=== PATIENT | male | born 1995 | race Caucasian/White ===

== ENCOUNTER 2020-08-15 14:21 | Outpatient (REF) | payer OTHER, SELFPAY | END 2020-08-15 14:22 | disposition home or self-care (01) | LOC: HO.LAB 14:21 | PROVIDERS: Visit Provider Internal Medicine | DX: Z20.828 Contact with and (suspected) exposure to other viral communicable diseases (principal) | CPT/HCPCS: U0003 ==

== ENCOUNTER 2020-08-19 11:30 | Outpatient (REF) | payer OTHER, SELFPAY | END 2020-08-19 11:31 | disposition home or self-care (01) | LOC: HO.LAB 11:30 | PROVIDERS: Visit Provider Internal Medicine | DX: Z20.828 Contact with and (suspected) exposure to other viral communicable diseases (principal) | CPT/HCPCS: C9803; U0003 ==

== ENCOUNTER 2020-08-25 15:01 | Outpatient (REF) | payer OTHER, SELFPAY | END 2020-08-25 15:02 | disposition home or self-care (01) | LOC: HO.LAB 15:01 | PROVIDERS: Visit Provider Internal Medicine | DX: Z20.828 Contact with and (suspected) exposure to other viral communicable diseases (principal) | CPT/HCPCS: C9803; U0003 ==

== ENCOUNTER 2020-08-31 17:08 | Outpatient (REF) | payer OTHER, SELFPAY | END 2020-08-31 17:09 | disposition home or self-care (01) | LOC: HO.LAB 17:08 | PROVIDERS: PCP Pediatrics; Visit Provider Internal Medicine | DX: Z20.828 Contact with and (suspected) exposure to other viral communicable diseases (principal) | CPT/HCPCS: C9803; U0003 ==

== ENCOUNTER 2020-09-16 11:18 | Outpatient (REF) | payer OTHER, SELFPAY | END 2020-09-16 11:19 | disposition home or self-care (01) | LOC: HO.LAB 11:18 | PROVIDERS: PCP Pediatrics; Visit Provider Internal Medicine | DX: Z20.828 Contact with and (suspected) exposure to other viral communicable diseases (principal) | CPT/HCPCS: C9803; U0003 ==

== ENCOUNTER 2020-11-28 17:26 | Inpatient (IN) | payer OTHER, SELFPAY ==
--- NOTE | ~2020-11-28 | XR_ITS ---
EXAMINATION: PORTABLE CHEST 1 VIEW CLINICAL INFORMATION: weakness . COMPARISON: No recent pertinent prior studies are available for comparison. TECHNIQUE: Portable frontal view of the chest was obtained. FINDINGS: The lungs are well expanded. No focal infiltrate, effusion, edema, or pneumothorax. Cardiac and mediastinal silhouettes are within normal limits for technique. No acute bony abnormality seen. XR/XR chest 1V IMPRESSION: No evidence of acute disease.
--- NOTE | 2020-11-28 17:35 | ED.WEAKNESS ---
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 Patient denies any cough occasional mild shortness of breath no fever no chills no abdominal pain no vomiting no diarrhea. Also patient has been feeling very weak and tired Complaint: generalized weakness Onset (ago): day(s) (3) Duration: constant Location: generalized Related Data Allergies Allergy/AdvReac Type Severity Reaction Status Date / Time No Known Allergies Allergy Verified 11/28/20 18:06 Review of Systems Review of Systems: Constitutional : No Weight loss, No Fever, No Chills ENT/Mouth : No sore throat, No Rhinorrhea Eyes: No Eye Pain, No Swelling Cardiovascular : No Chest Pain, no palpitations Respiratory : No Cough, No Sputum, no shortness of breath Gastrointestinal : no Nausea, No Vomiting, No Diarrhea, No abdominal Pain, no black stools Genitourinary : No Dysuria, No Urinary Frequency Musculoskeletal : No joint pain, No Myalgias, No Joint Swelling Skin : No Skin Lesions, No rash Neuro : ++ Weakness, No Numbness, ++Dizziness, No Headache Psych : No Anxiety/Panic, No Depression Heme/Lymph: No Bruising, No Lymphadenopathy Endocrine : No Polyuria, No Polydipsia All other systems reviewed and are negative FOR[facility], [facility] Past Medical History Medical History (Updated 11/29/20 @ 01:44 by Bernabe Wilson MD) Diabetes mellitus type 1 History of heroin abuse Social History Social History Alcohol intake: never Smoking Status: Current every day smoker Use of substances other than those prescribed or required for medical reasons: No Advance Directives: No Advance Directives Information Provided: Yes Physical Exam Vital Signs: Vital Signs: Last Vital Signs Temp 97.4 F 11/28/20 17:36 Pulse 73 11/29/20 00:26 Resp 16 11/29/20 00:26 BP 110/67 02/16/21 00:26 Pulse Ox 100 11/29/20 00:26 Body Mass Index 20.6 Appearance: Alert. Oriented X3. No acute distress. Eyes: Pupils equal, round and reactive to light. Sensitive to light ENT: Pharynx normal. Oral mucosa dry Neck: Normal inspection. Neck supple. CVS: Normal heart rate and rhythm. Pulses normal. Respiratory: No respiratory distress. Breath sounds normal. Abdomen: Soft and nontender. Bowel sounds are present, no mass palpable, no CVA tenderness Skin: Skin warm and dry. Normal skin color. Normal skin turgor. Extremities: No lower extremity edema. Neuro: Oriented X 3. No motor deficit. No sensory deficit. Course Course Course Narrative: Patient feeling much better now after 1 L of IV fluids has insulin pump which is set at 2 units/hour at basal rate with 0.1 units bolus . Patient will receive another 2 L of normal saline along with IV 5 units of insulin as a bolus. Patient headache has improved after Imitrex Reevaluation(s) Reevaluation #1: Patient still metabolic acidotic after 3 L of IV fluid pH is still 7.24 with bicarb of 15 pH of 7.24 although anion gap is closed will start him on insulin drip watch him for some time repeat the chemistry in 4 hours. Patient had p.o. food in the ER and already received 3 L of normal saline will start patient on D5 half-normal. Blood sugar is 231 now Time: 00:54 Reevaluation #2: Case discussed with Dr. Moncada will admit patient for DKA on insulin drip , although there is no ICU bed will watch patient in the ER repeat labs in the morning Time: 01:42 MDM - Weakness MDM Narrative Medical decision making narrative: Patient with diabetic ketoacidosis with nausea and weakness and migraine headache with anion gap of 21 in the labs and acidotic in venous gases bicarb of 11 will continue to give IV fluids will give 8 units of insulin IV and monitor Differential Diagnosis Differential diagnosis: Likely dehydration Lab Data Attestation: I reviewed the patient's lab results. Result diagrams: 11/28/20 17:49 11/28/20 22:05 Labs: Lab Results 11/28/20 11/28/20 11/28/20 Range/Units 17:49 17:49 17:49 WBC 6.7 (4.8-10.8) X10*3/uL RBC 4.09 L (4.60-5.80) X10*6/uL Hgb 12.8 L (14.0-18.0) g/dl Hct 38.0 L (42-52) % MCV 92.9 (80-98) fL MCH 31.3 (27.0-33.0) pg MCHC 33.7 (31.0-36.0) g/dl RDW 12.0 (11.0-16.0) % Plt Count 303 (160-400) X10*3/uL MPV 9.2 L (9.4-12.4) fL Immature Gran % (Auto) 0.3 (0.0-0.4) % Neut % (Auto) 83.7 H (45-73) % Lymph % (Auto) 14.1 L (20-40) % [place] % (Auto) 1.9 L (2-11) % Eos % (Auto) 0.0 (0-4) % Baso % (Auto) 0.0 (0-2) % Lymph # (Auto) 1.0 L (1.2-4.9) X10*3/uL [place] # (Auto) 0.1 (0.1-1.2) X10*3/uL Eos # (Auto) 0.0 (0.0-0.4) X10*3/uL Baso # (Auto) 0.0 (0.0-0.2) X10*3/uL Abs Immat Gran (auto) 0.02 (0.00-0.03) X10*3/uL Absolute Neuts (auto) 5.6 (2.0-8.3) X10*3/uL Absolute Nucleated RBC 0.000 (0.0-0.012) X10*3/uL Nucleated RBC % (auto) 0.0 (0.0-0.2) /100WBC ABG pH (7.35-7.45) ABG pCO2 (32-45) mmHg ABG pO2 (83-108) mmHg ABG HCO3 (22-26) mmol/L ABG O2 Saturation % ABG Base Excess VBG pH (7.32-7.43) VBG pCO2 mmHg VBG pO2 mmHg VBG HCO3 mmol/L VBG O2 Saturation % VBG Base Excess mmol/L Oxygen Given Sodium 132 L (135-145) mmol/L Potassium 4.4 (3.3-5.1) mmol/L Chloride 102 (96-108) mmol/L Carbon Dioxide 13 L (22-29) mmol/L Anion Gap 21 H (12-20) BUN 16 (9-16) mg/dL Creatinine 0.83 (0.5-1.4) mg/dL Estim Creat Clear Calc 125.4 Estimated GFR > 60 POC Glucose (60-115) mg/dL Random Glucose 339 H (60-115) mg/dL Calcium 8.0 L (8.4-10.2) mg/dL Total Bilirubin 0.7 (0.0-1.0) mg/dL Direct Bilirubin 0.2 (0.0-0.5) mg/dL AST 12 (5-37) U/L ALT 21 (0-40) U/L Alkaline Phosphatase 140 H (39-117) U/L Total Protein 6.0 L (6.5-8.0) g/dL Albumin 4.0 (3.5-5.0) g/dL Lipase < 4 L (8-78) U/L Urine Color Urine Appearance Urine pH (5.0-8.0) Ur Specific [place] (1.005-1.025) Urine Protein (NEG-TRACE) MG/DL Urine Glucose (UA) (NEG) MG/DL Urine Ketones (NEG) MG/DL Urine Blood (NEG) Urine Nitrite (NEG) Ur Leukocyte Esterase (NEG) Acetone, Qual Small H (Negative) COVID-19 (ELISA) Negative (Negative) COVID-19 Clin Com See Note 11/28/20 11/28/20 11/28/20 Range/Units 17:50 18:47 20:01 WBC (4.8-10.8) X10*3/uL RBC (4.60-5.80) X10*6/uL Hgb (14.0-18.0) g/dl Hct (42-52) % MCV (80-98) fL MCH (27.0-33.0) pg MCHC (31.0-36.0) g/dl RDW (11.0-16.0) % Plt Count (160-400) X10*3/uL MPV (9.4-12.4) fL Immature Gran % (Auto) (0.0-0.4) % Neut % (Auto) (45-73) % Lymph % (Auto) (20-40) % [place] % (Auto) (2-11) % Eos % (Auto) (0-4) % Baso % (Auto) (0-2) % Lymph # (Auto) (1.2-4.9) X10*3/uL [place] # (Auto) (0.1-1.2) X10*3/uL Eos # (Auto) (0.0-0.4) X10*3/uL Baso # (Auto) (0.0-0.2) X10*3/uL Abs Immat Gran (auto) (0.00-0.03) X10*3/uL Absolute Neuts (auto) (2.0-8.3) X10*3/uL Absolute Nucleated RBC (0.0-0.012) X10*3/uL Nucleated RBC % (auto) (0.0-0.2) /100WBC ABG pH (7.35-7.45) ABG pCO2 (32-45) mmHg ABG pO2 (83-108) mmHg ABG HCO3 (22-26) mmol/L ABG O2 Saturation % ABG Base Excess VBG pH 7.24 L (7.32-7.43) VBG pCO2 24 mmHg VBG pO2 150 mmHg VBG HCO3 11 mmol/L VBG O2 Saturation 99.0 % VBG Base Excess -14.4 mmol/L Oxygen Given Sodium (135-145) mmol/L Potassium (3.3-5.1) mmol/L Chloride (96-108) mmol/L Carbon Dioxide (22-29) mmol/L Anion Gap (12-20) BUN (9-16) mg/dL Creatinine (0.5-1.4) mg/dL Estim Creat Clear Calc Estimated GFR POC Glucose 288 H 240 H (60-115) mg/dL Random Glucose (60-115) mg/dL Calcium (8.4-10.2) mg/dL Total Bilirubin (0.0-1.0) mg/dL Direct Bilirubin (0.0-0.5) mg/dL AST (5-37) U/L ALT (0-40) U/L Alkaline Phosphatase (39-117) U/L Total Protein (6.5-8.0) g/dL Albumin (3.5-5.0) g/dL Lipase (8-78) U/L Urine Color Urine Appearance Urine pH (5.0-8.0) Ur Specific [place] (1.005-1.025) Urine Protein (NEG-TRACE) MG/DL Urine Glucose (UA) (NEG) MG/DL Urine Ketones (NEG) MG/DL Urine Blood (NEG) Urine Nitrite (NEG) Ur Leukocyte Esterase (NEG) Acetone, Qual (Negative) COVID-19 (ELISA) (Negative) COVID-19 Clin Com 11/28/20 11/28/20 11/28/20 Range/Units 22:05 22:12 23:09 WBC (4.8-10.8) X10*3/uL RBC (4.60-5.80) X10*6/uL Hgb (14.0-18.0) g/dl Hct (42-52) % MCV (80-98) fL MCH (27.0-33.0) pg MCHC (31.0-36.0) g/dl RDW (11.0-16.0) % Plt Count (160-400) X10*3/uL MPV (9.4-12.4) fL Immature Gran % (Auto) (0.0-0.4) % Neut % (Auto) (45-73) % Lymph % (Auto) (20-40) % [place] % (Auto) (2-11) % Eos % (Auto) (0-4) % Baso % (Auto) (0-2) % Lymph # (Auto) (1.2-4.9) X10*3/uL [place] # (Auto) (0.1-1.2) X10*3/uL Eos # (Auto) (0.0-0.4) X10*3/uL Baso # (Auto) (0.0-0.2) X10*3/uL Abs Immat Gran (auto) (0.00-0.03) X10*3/uL Absolute Neuts (auto) (2.0-8.3) X10*3/uL Absolute Nucleated RBC (0.0-0.012) X10*3/uL Nucleated RBC % (auto) (0.0-0.2) /100WBC ABG pH (7.35-7.45) ABG pCO2 (32-45) mmHg ABG pO2 (83-108) mmHg ABG HCO3 (22-26) mmol/L ABG O2 Saturation % ABG Base Excess VBG pH (7.32-7.43) VBG pCO2 mmHg VBG pO2 mmHg VBG HCO3 mmol/L VBG O2 Saturation % VBG Base Excess mmol/L Oxygen Given Sodium 136 (135-145) mmol/L Potassium 4.9 (3.3-5.1) mmol/L Chloride 109 H (96-108) mmol/L Carbon Dioxide 15 L (22-29) mmol/L Anion Gap 17 (12-20) BUN 13 (9-16) mg/dL Creatinine 0.74 (0.5-1.4) mg/dL Estim Creat Clear Calc 140.7 Estimated GFR > 60 POC Glucose 231 H (60-115) mg/dL Random Glucose 232 H (60-115) mg/dL Calcium 7.7 L (8.4-10.2) mg/dL Total Bilirubin (0.0-1.0) mg/dL Direct Bilirubin (0.0-0.5) mg/dL AST (5-37) U/L ALT (0-40) U/L Alkaline Phosphatase (39-117) U/L Total Protein (6.5-8.0) g/dL Albumin (3.5-5.0) g/dL Lipase (8-78) U/L Urine Color STRAW Urine Appearance CLEAR Urine pH 5.5 (5.0-8.0) Ur Specific [place] >= 1.030 H (1.005-1.025) Urine Protein NEG (NEG-TRACE) MG/DL Urine Glucose (UA) 500 H (NEG) MG/DL Urine Ketones >=80 (NEG) MG/DL Urine Blood NEG (NEG) Urine Nitrite NEG (NEG) Ur Leukocyte Esterase NEG (NEG) Acetone, Qual (Negative) COVID-19 (ELISA) (Negative) COVID-19 Clin Com 11/28/20 11/29/20 Range/Units 23:34 00:40 WBC (4.8-10.8) X10*3/uL RBC (4.60-5.80) X10*6/uL Hgb (14.0-18.0) g/dl Hct (42-52) % MCV (80-98) fL MCH (27.0-33.0) pg MCHC (31.0-36.0) g/dl RDW (11.0-16.0) % Plt Count (160-400) X10*3/uL MPV (9.4-12.4) fL Immature Gran % (Auto) (0.0-0.4) % Neut % (Auto) (45-73) % Lymph % (Auto) (20-40) % [place] % (Auto) (2-11) % Eos % (Auto) (0-4) % Baso % (Auto) (0-2) % Lymph # (Auto) (1.2-4.9) X10*3/uL [place] # (Auto) (0.1-1.2) X10*3/uL Eos # (Auto) (0.0-0.4) X10*3/uL Baso # (Auto) (0.0-0.2) X10*3/uL Abs Immat Gran (auto) (0.00-0.03) X10*3/uL Absolute Neuts (auto) (2.0-8.3) X10*3/uL Absolute Nucleated RBC (0.0-0.012) X10*3/uL Nucleated RBC % (auto) (0.0-0.2) /100WBC ABG pH 7.24 L (7.35-7.45) ABG pCO2 30 L (32-45) mmHg ABG pO2 118 H (83-108) mmHg ABG HCO3 13 L (22-26) mmol/L ABG O2 Saturation 100.0 % ABG Base Excess -12.6 VBG pH (7.32-7.43) VBG pCO2 mmHg VBG pO2 mmHg VBG HCO3 mmol/L VBG O2 Saturation % VBG Base Excess mmol/L Oxygen Given ROOM AIR Sodium (135-145) mmol/L Potassium (3.3-5.1) mmol/L Chloride (96-108) mmol/L Carbon Dioxide (22-29) mmol/L Anion Gap (12-20) BUN (9-16) mg/dL Creatinine (0.5-1.4) mg/dL Estim Creat Clear Calc Estimated GFR POC Glucose 234 H (60-115) mg/dL Random Glucose (60-115) mg/dL Calcium (8.4-10.2) mg/dL Total Bilirubin (0.0-1.0) mg/dL Direct Bilirubin (0.0-0.5) mg/dL AST (5-37) U/L ALT (0-40) U/L Alkaline Phosphatase (39-117) U/L Total Protein (6.5-8.0) g/dL Albumin (3.5-5.0) g/dL Lipase (8-78) U/L Urine Color Urine Appearance Urine pH (5.0-8.0) Ur Specific [place] (1.005-1.025) Urine Protein (NEG-TRACE) MG/DL Urine Glucose (UA) (NEG) MG/DL Urine Ketones (NEG) MG/DL Urine Blood (NEG) Urine Nitrite (NEG) Ur Leukocyte Esterase (NEG) Acetone, Qual (Negative) COVID-19 (ELISA) (Negative) COVID-19 Clin Com Critical Care Time Critical Care Time Critical Care Time: Yes Total Critical Care Time: 45 Attestation: I spent 45 minutes of critical care, with interventions, assessments and speaking to patient Discharge Plan Discharge Clinical Impression: Diabetic ketoacidosis Qualifiers: Diabetes mellitus type: type 1 Diabetes mellitus complication detail: without coma Qualified Code(s): E10.10 - Type 1 diabetes mellitus with ketoacidosis without coma Headache, migraine Qualifiers: Migraine type: without aura Status migrainosus presence: without status migrainosus Intractability: not intractable Qualified Code(s): G43.009 - Migraine without aura, not intractable, without status migrainosus Patient Disposition: Admitted As Inpatient
[2020-11-28 17:36] VITALS: BP 114/72; BP 116/74; PULSE 79; PULSE 80; RESP 22; TEMP 36.3; O2SAT 98; BMI 20.6
[2020-11-28] MEDS: 0.9 % Sodium Chloride 1,000 ML 999 ML IVCONT ×3 (17:54→19:29)
[2020-11-28 17:55] LABS: MANUAL DIFF FLAG NO
[2020-11-28 17:57] LABS: Base Excess VBG -14.4 mmol/L; HCO3 VBG 11 mmol/L; PCO2 VBG 24 mmHg; PO2 VBG 150 mmHg; pH VBG 7.24 (7.32-7.43)
[2020-11-28 17:57] LABS: Hemoglobin 12.8 g/dl (14.0-18.0); Imm Gran Abs Auto 0.02 X10*3/uL (0.00-0.03); Imm Gran Pct Auto 0.3 % (0.0-0.4); Lymphocytes Percent Auto 14.1 % (20-40); Mean Corpuscular HGB Conc 33.7 g/dl (31.0-36.0); Mean Corpuscular Hemoglobin 31.3 pg (27.0-33.0); Mean Corpuscular Volume 92.9 fL (80-98); Mean Platelet Volume 9.2 fL (9.4-12.4); Monocytes Absolute Auto 0.1 X10*3/uL (0.1-1.2); Monocytes Percent Auto 1.9 % (2-11); Neutrophils Absolute Auto 5.6 X10*3/uL (2.0-8.3); Neutrophils Percent Auto 83.7 % (45-73); Platelet Count 303 X10*3/uL (160-400); Red Blood Count 4.09 X10*6/uL (4.60-5.80); White Blood Count 6.7 X10*3/uL (4.8-10.8)
[2020-11-28] MEDS: ondansetron HCL 4 MG/2 ML VIAL IVPUSH (18:01)
--- NOTE | 2020-11-28 18:08 | PC.NURSE ---
Labs drawn. Pt medicated for nausea and headache. IVF started.
[2020-11-28 18:14] LABS: COVID-19 Test Negative (Negative)
[2020-11-28 18:39] LABS: Alanine Aminotransferase 21 U/L (0-40); Alkaline Phosphatase 140 U/L (39-117); Anion Gap 21 (12-20); Aspartate Amino Transferase 12 U/L (5-37); Bilirubin Direct 0.2 mg/dL (0.0-0.5); Bilirubin Total 0.7 mg/dL (0.0-1.0); Blood Urea Nitrogen 16 mg/dL (9-16); Carbon Dioxide 13 mmol/L (22-29); Chloride 102 mmol/L (96-108); Creatinine Clr Calc Pharmacy 125.4; Estimated Glomerular Filt Rate > 60; Glucose Random 339 mg/dL (60-115); Lipase < 4 U/L (8-78); Potassium 4.4 mmol/L (3.3-5.1); Sodium 132 mmol/L (135-145)
[2020-11-28 18:51] LABS: Glucose, Whole Blood 288 mg/dL (60-115)
[2020-11-28] MEDS: Insulin Regular, Human 100 UNIT/ML 3 ML VIAL IVPUSH (18:57)
[2020-11-28 19:11] LABS: Acetone, serum QL Small (Negative)
[2020-11-28 19:31] VITALS: BP 100/56; PULSE 80; RESP 16; O2SAT 100
[2020-11-28 20:06] LABS: Glucose, Whole Blood 240 mg/dL (60-115)
[2020-11-28 22:00] VITALS: BP 107/61; PULSE 74; RESP 16; O2SAT 99
[2020-11-28 22:15] LABS: Glucose, Whole Blood 231 mg/dL (60-115)
[2020-11-28 22:39] LABS: Anion Gap 17 (12-20); Blood Urea Nitrogen 13 mg/dL (9-16); Calcium 7.7 mg/dL (8.4-10.2); Carbon Dioxide 15 mmol/L (22-29); Chloride 109 mmol/L (96-108); Creatinine Clr Calc Pharmacy 140.7; Estimated Glomerular Filt Rate > 60; Glucose Random 232 mg/dL (60-115); Potassium 4.9 mmol/L (3.3-5.1); Sodium 136 mmol/L (135-145)
[2020-11-28 23:13] LABS: Appearance Urine CLEAR; Color Urine STRAW; Glucose Urine UA 500 MG/DL (NEG); Leukocyte Esterase Urine NEG (NEG); Nitrite Urine NEG (NEG); PH 5.5 (5.0-8.0); Specific Gravity - Urine >= 1.030 (1.005-1.025); Urine Blood NEG (NEG); Urine Ketones >=80 MG/DL (NEG); Urine Protein NEG (NEG-TRACE)
[2020-11-28 23:38] VITALS: O2SAT 98
[2020-11-28 23:45] LABS: Pt Ventilation O2% ROOM AIR
[2020-11-28 23:48] LABS: pH ABG 7.24 (7.35-7.45)
[2020-11-28 23:49] LABS: ABG PCO2 30 mmHg (32-45); Base Excess ABG -12.6; HCO3 ABG 13 mmol/L (22-26); PO2 ABG 118 mmHg (83-108)
[2020-11-29] VITALS (15 sets, daily range): BP systolic 99–126; BP diastolic 57–78; PULSE 59–80; RESP 10–21; TEMP 36.6–36.9; O2SAT 98–100; BMI 20.2
[2020-11-29] MEDS: 0.9 % Sodium Chloride 1,000 ML 999 ML IVCONT (00:28)
--- NOTE | 2020-11-29 00:29 | PC.NURSE ---
pt had a insulin pump connected to his abd and his has been removed. pt states he thinks his insulin pump was empty.
[2020-11-29 00:43] LABS: Glucose, Whole Blood 234 mg/dL (60-115)
[2020-11-29] MEDS: Dextrose 5 % and 0.45 % NaCl 1,000 ML 125 ML IVCONT (01:24)
--- NOTE | 2020-11-29 01:26 | PC.NURSE ---
insulin drip started at 5 units hr. this is a verbal rate per dr gil. insulin drip unable to document the start of the drip. 2nd rn verified with myself and Rachel luu.
--- NOTE | 2020-11-29 02:43 | PM.CCHP ---
History of Present Illness Date of Service: 11/29/20 Chief Complaint: Headache The patient is a 25-year-old male with a past medical history of type 1 diabetes mellitus on an insulin pump, who presented to the emergency room with a complaint of headache. He reports headaches begin x3 days ago as well as feeling weak and nauseous. He denies any vision changes/ sensitivity to light when headaches. He denies cough, shortness of breath, no fevers, no chills, abdominal pain, diarrhea and vomiting. 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 Patient does also report he is new using insulin pump, states it was given to him in the last month or 2. He states he usually follows basal rate/boluses. But was unsure the last couple of days as to how many times he gave himself a bolus. He believes he might around now off insulin. Laboratory data significant for blood gas: 7.24/30/118/13/-12.6. Sodium 132, bicarb 13, and anion gap 21 and glucose 339 ICU admission for management of DKA Review of Systems Review of Systems: as HPI [facility] Past Medical History Medical History (Updated 11/29/20 @ 02:53 by Radha Covington) Diabetes mellitus type 1 History of heroin abuse Family History Family history: reviewed and not pertinent Social History Social History Alcohol intake: never Smoking Status: Current every day smoker Use of substances other than those prescribed or required for medical reasons: No Advance Directives: No Advance Directives Information Provided: Yes Meds Allergies Allergy/AdvReac Type Severity Reaction Status Date / Time No Known Allergies Allergy Verified 11/28/20 18:06 Active Medications: Current Medications Generic Name Dose Route Start Last Admin Trade Name Freq PRN Reason Stop Dose Admin Acetaminophen 650 mg 11/29/20 02:28 Acetaminophen 325 Mg Tablet PO Q6H PRN Pain, Moderate (Pain Scale 4-6 Insulin Human Regular 100 unit in 100 mls @ 0 mls/hr 11/29/20 00:30 Myxredlin IVCONT .Q0M TERRA Protocol Per Protocol Dextrose/Sodium Chloride 1,000 mls @ 125 mls/hr 11/29/20 00:45 11/29/20 01:24 D51/2ns IVCONT 125 mls/hr .Q8H TERRA Administration Ondansetron HCl 4 mg 11/29/20 02:30 Ondansetron Hcl 4 Mg/2 Ml Vial IVPUSH Q6H PRN Nausea Physical Exam Vital Signs: Vital Signs: Last Vital Signs Temp 97.4 F 11/28/20 17:36 Pulse 73 11/29/20 00:26 Resp 16 11/29/20 00:26 BP 110/67 11/29/20 00:26 Pulse Ox 100 11/29/20 00:26 Body Mass Index 20.6 Const: General: cooperative Nutritional Appearance: thin Orientation/consciousness: patient oriented x3 Limitations: no limitations HENMT: Mouth: moist mucous membranes abnormal (Dry) Eyes: General: appearance normal, both eyes and all related structures Pupils: Equal, round and reactive pupils present Neck: Neck: Yes normal visual inspection and Yes supple Chest: Chest palpation & inspection: normal inspection of the chest Resp: Effort & Inspection: normal respiratory effort Auscultation: clear to auscultation bilaterally Cardio: Jugular venous distension: no JVD Rate: regular rate Heart sounds: S1 normal heart sound present and S2 normal heart sound present Peripheral pulses: Peripheral pulses 2+ throughout GI: Inspection: Yes normal to inspection Palpation (GI): Soft to palpation Auscultation: normal bowel sounds Skin: General skin exam: dry skin Neuro: General: patient oriented x3 Cranial nerves: Yes Equal, round and reactive pupils present Results Labs CBC and Chem 7: 11/28/20 17:49 11/28/20 22:05 Labs: Laboratory Results - last 24 hr 11/28/20 11/28/20 11/28/20 17:49 17:49 17:49 MCV 92.9 MCH 31.3 MCHC 33.7 RDW 12.0 Plt Count 303 MPV 9.2 L Immature Gran % (Auto) 0.3 Neut % (Auto) 83.7 H Lymph % (Auto) 14.1 L [place] % (Auto) 1.9 L Eos % (Auto) 0.0 Baso % (Auto) 0.0 Lymph # (Auto) 1.0 L [place] # (Auto) 0.1 Eos # (Auto) 0.0 Baso # (Auto) 0.0 Abs Immat Gran (auto) 0.02 Absolute Neuts (auto) 5.6 Absolute Nucleated RBC 0.000 Nucleated RBC % (auto) 0.0 ABG pH ABG pCO2 ABG pO2 ABG HCO3 ABG O2 Saturation ABG Base Excess VBG pH VBG pCO2 VBG pO2 VBG HCO3 VBG O2 Saturation VBG Base Excess Oxygen Given Anion Gap 21 H Estim Creat Clear Calc 125.4 Estimated GFR > 60 POC Glucose Random Glucose 339 H Calcium 8.0 L Total Bilirubin 0.7 Direct Bilirubin 0.2 AST 12 ALT 21 Alkaline Phosphatase 140 H Total Protein 6.0 L Albumin 4.0 Lipase < 4 L Urine Color Urine Appearance Urine pH Ur Specific [place] Urine Protein Urine Glucose (UA) Urine Ketones Urine Blood Urine Nitrite Ur Leukocyte Esterase Acetone, Qual Small H COVID-19 (ELISA) Negative COVID-19 3ROAM Com See Note 11/28/20 11/28/20 11/28/20 17:50 18:47 20:01 MCV MCH MCHC RDW Plt Count MPV Immature Gran % (Auto) Neut % (Auto) Lymph % (Auto) [place] % (Auto) Eos % (Auto) Baso % (Auto) Lymph # (Auto) [place] # (Auto) Eos # (Auto) Baso # (Auto) Abs Immat Gran (auto) Absolute Neuts (auto) Absolute Nucleated RBC Nucleated RBC % (auto) ABG pH ABG pCO2 ABG pO2 ABG HCO3 ABG O2 Saturation ABG Base Excess VBG pH 7.24 L VBG pCO2 24 VBG pO2 150 VBG HCO3 11 VBG O2 Saturation 99.0 VBG Base Excess -14.4 Oxygen Given Anion Gap Estim Creat Clear Calc Estimated GFR POC Glucose 288 H 240 H Random Glucose Calcium Total Bilirubin Direct Bilirubin AST ALT Alkaline Phosphatase Total Protein Albumin Lipase Urine Color Urine Appearance Urine pH Ur Specific [place] Urine Protein Urine Glucose (UA) Urine Ketones Urine Blood Urine Nitrite Ur Leukocyte Esterase Acetone, Qual COVID-19 (ELISA) COVID-Tremor Video 11/28/20 11/28/20 11/28/20 22:05 22:12 23:09 MCV MCH MCHC RDW Plt Count MPV Immature Gran % (Auto) Neut % (Auto) Lymph % (Auto) [place] % (Auto) Eos % (Auto) Baso % (Auto) Lymph # (Auto) [place] # (Auto) Eos # (Auto) Baso # (Auto) Abs Immat Gran (auto) Absolute Neuts (auto) Absolute Nucleated RBC Nucleated RBC % (auto) ABG pH ABG pCO2 ABG pO2 ABG HCO3 ABG O2 Saturation ABG Base Excess VBG pH VBG pCO2 VBG pO2 VBG HCO3 VBG O2 Saturation VBG Base Excess Oxygen Given Anion Gap 17 Estim Creat Clear Calc 140.7 Estimated GFR > 60 POC Glucose 231 H Random Glucose 232 H Calcium 7.7 L Total Bilirubin Direct Bilirubin AST ALT Alkaline Phosphatase Total Protein Albumin Lipase Urine Color STRAW Urine Appearance CLEAR Urine pH 5.5 Ur Specific [place] >= 1.030 H Urine Protein NEG Urine Glucose (UA) 500 H Urine Ketones >=80 Urine Blood NEG Urine Nitrite NEG Ur Leukocyte Esterase NEG Acetone, Qual COVID-19 (ELISA) COVID-19 [employer] 11/28/20 11/29/20 23:34 00:40 MCV MCH MCHC RDW Plt Count MPV Immature Gran % (Auto) Neut % (Auto) Lymph % (Auto) [place] % (Auto) Eos % (Auto) Baso % (Auto) Lymph # (Auto) [place] # (Auto) Eos # (Auto) Baso # (Auto) Abs Immat Gran (auto) Absolute Neuts (auto) Absolute Nucleated RBC Nucleated RBC % (auto) ABG pH 7.24 L ABG pCO2 30 L ABG pO2 118 H ABG HCO3 13 L ABG O2 Saturation 100.0 ABG Base Excess -12.6 VBG pH VBG pCO2 VBG pO2 VBG HCO3 VBG O2 Saturation VBG Base Excess Oxygen Given ROOM AIR Anion Gap Estim Creat Clear Calc Estimated GFR POC Glucose 234 H Random Glucose Calcium Total Bilirubin Direct Bilirubin AST ALT Alkaline Phosphatase Total Protein Albumin Lipase Urine Color Urine Appearance Urine pH Ur Specific [place] Urine Protein Urine Glucose (UA) Urine Ketones Urine Blood Urine Nitrite Ur Leukocyte Esterase Acetone, Qual COVID-19 (ELISA) COVID-19 [employer] [facility] Radiologist's Impressions: Impressions Chest X-Ray 11/28/20 17:32 IMPRESSION: No evidence of acute disease. Assessment and Plan (1) Diabetic ketoacidosis: Qualifiers: Diabetes mellitus complication detail: without coma Diabetes mellitus type: type 1 Qualified Code(s): E10.10 - Type 1 diabetes mellitus with ketoacidosis without coma Status: Acute 25-year-old female with type 1 diabetes mellitus new to using insulin pump. Likely in DKA due to poor management of insulin with pump. Plan: Neuro: no acute issues Cardiac: no acute issues Pulmonary: no acute issues Renal: no acute issues GI: Nausea: likely from acidosis. Continue Zofran p.r.n., Endo: type 1 diabetes /diabetic ketoacidosis- continue insulin drip. Follow DKA protocol. Patient required location on insulin pump before he goes home ID: no acute issues Heme/Onc: No acute issues. Psych: No acute issues. Miscellaneous: No acute issues. Prophylaxis: Early ambulation Diet: NPO with sips of water ice chips Critical care time: x 60 minutes of critical care time CODE: FULL (2) Headache, migraine: Qualifiers: Intractability: not intractable Migraine type: without aura Status migrainosus presence: without status migrainosus Qualified Code(s): G43.009 - Migraine without aura, not intractable, without status migrainosus Status: Acute (3) Diabetes mellitus type 1: Status: Acute (4) Nausea: Status: Acute
--- NOTE | 2020-11-29 02:54 | PC.NURSE ---
insulin drip titrated to 7.5 unit/hr for a poc 220. 2nd rn witness renay luu.
[2020-11-29 03:51] LABS: Glucose, Whole Blood 220 mg/dL (60-115)
[2020-11-29 03:51] LABS: Glucose, Whole Blood 177 mg/dL (60-115)
--- NOTE | 2020-11-29 03:52 | PC.NURSE ---
insulin drip remains at the same rate of 7.5 units/hour. pt skin warm pale dry. pt is arrousable
--- NOTE | 2020-11-29 04:45 | PC.NURSE ---
pt insulin drip rate reduced to 5.5 units/hr from 7.5 units/hr for a poc of 127
[2020-11-29 05:52] LABS: Glucose, Whole Blood 127 mg/dL (60-115)
[2020-11-29 05:53] LABS: Glucose, Whole Blood 77 mg/dL (60-115)
--- NOTE | 2020-11-29 05:53 | PC.NURSE ---
icu provider called for a poc of 77. order to stop the insulin drip drawn am labs and then call with results.
[2020-11-29 06:17] LABS: MANUAL DIFF FLAG NO
[2020-11-29 06:18] LABS: Basophils Percent Auto 0.1 % (0-2); Eosinophils Percent Auto 0.1 % (0-4); Hematocrit 37.7 % (42-52); Hemoglobin 12.8 g/dl (14.0-18.0); Imm Gran Abs Auto 0.01 X10*3/uL (0.00-0.03); Imm Gran Pct Auto 0.1 % (0.0-0.4); Lymphocytes Absolute Auto 1.9 X10*3/uL (1.2-4.9); Lymphocytes Percent Auto 27.1 % (20-40); Mean Corpuscular Hemoglobin 31.7 pg (27.0-33.0); Mean Corpuscular Volume 93.3 fL (80-98); Mean Platelet Volume 9.3 fL (9.4-12.4); Monocytes Absolute Auto 0.8 X10*3/uL (0.1-1.2); Monocytes Percent Auto 11.6 % (2-11); Neutrophils Absolute Auto 4.3 X10*3/uL (2.0-8.3); Platelet Count 281 X10*3/uL (160-400); Red Blood Count 4.04 X10*6/uL (4.60-5.80); Red Cell Distribution Width 11.9 % (11.0-16.0); White Blood Count 7.1 X10*3/uL (4.8-10.8)
[2020-11-29 06:43] LABS: Albumin Level 3.4 g/dL (3.5-5.0); Anion Gap 13 (12-20); Blood Urea Nitrogen 10 mg/dL (9-16); Carbon Dioxide 17 mmol/L (22-29); Chloride 110 mmol/L (96-108); Creatinine Clr Calc Pharmacy 150.9; Estimated Glomerular Filt Rate > 60; Glucose Random 83 mg/dL (60-115); Magnesium 1.8 mg/dL (1.6-2.6); Potassium 4.1 mmol/L (3.3-5.1); Sodium 136 mmol/L (135-145)
--- NOTE | 2020-11-29 06:43 | PC.NURSE ---
TRUMAN SEEN PT IN THE ED. POC 77 SAME BEFORE. VERBAL ORDER TO KEEP THE INSULIN DRIP OFF TILL ALL THE AM LABS RETURN. PT RESTING COMFORTABLY NO S/S OF DISTRESS NOTED. PT SLEEPING AND IS ARROUSABLE.
[2020-11-29 06:49] LABS: Glucose, Whole Blood 77 mg/dL (60-115)
[2020-11-29 07:28] LABS: Glucose, Whole Blood 81 mg/dL (60-115)
--- NOTE | 2020-11-29 07:29 | PC.NURSE ---
PT IS AWAKE AND EATING BREAKFAST. STATES HIS HEADACHE REMAINS, LOWER INTENSITY, VSS. IV FLUIDS ARE INFUSING AT SHIFT REPORT D5 .045%NS @125ML/HR POC OBTAINED
--- NOTE | 2020-11-29 08:52 | PC.NURSE ---
pt to the icu without incident pt remains alert and oriented and agreeable to plan.
[2020-11-29 08:53] LABS: Glucose, Whole Blood 222 mg/dL (60-115)
--- NOTE | 2020-11-29 08:53 | PC.NURSE ---
Addendum entered by Nhung Sánchez 11/29/20 10:09: pt arrived from er with d5 .45ns and insulin gtt off, insulin gtt restarted and correct ivf hung d5lr @ 200 Original Note: recieved pt from [facility] from the ed pt aox4 poc obtained on arrival 222, pt did eat breakfast prior to arrival to the icu
[2020-11-29] MEDS: Dextrose 5 % and Lactated Ring 1,000 ML 200 ML IVCONT (09:05)
--- NOTE | 2020-11-29 09:40 | MHC.CM.PN ---
Addendum entered by Sherri Santiago 11/29/20 14:33: Received call from Cesia at [facility]: Cesia confirms that pt will not be permitted back d/t his high need for supervision, cueing/reminders and lack of insight into his care needs. She stressed that clients need to be 100% independent - pt required daily cueing/reminders and care plans / charts to assist him with ADL basics like bathing, dressing, grooming and getting to work. She said his room is constantly strewn with trash, soiled clothes and rotting food and has required staff assistance to clean. He is very sweet and we've tried very hard to help him and keep him in our program but his needs exceed our capabilities. She states his behaviors have deteriorated and become more bizarre including the hoarding, paranoid thoughts and expression and neglect of his own care. CM to follow Addendum entered by Sherri Santiago 11/29/20 13:46: Received call from pt's mother, Aleshia who wanted to give CM information on pt's 'real' situation. Per Aleshia, pt was still residing at the [facility] and not with family as he stated to CM. He doesn't like people knowing about that and won't be forthcoming with accurate information She states that he is no longer able to return d/t his poor hygeine, ? paranoia and squalid room conditions. Message left with Cesia Sandoval, director of the [facility] at [phone] to verify above Aleshia states pt has a long hx of psychiatric issues including a stay in [facility] partial program as a child and at a facility called [facility] that has since closed. He is reportedly affiliated with [facility] and [facility]. Aleshia states pt has a diagnosis of epilepsy, mood disorder and an autism spectrum d/o. He was working at [employer] but reportedly has not reported to work in some time. Aleshia states she had a conversation with pt prior to his admission and felt he was exhibiting paranoia. Calls to [facility] at [phone] and [facility] at [phone] Per [facility], they need a release from the pt as well as the name of the program that the pt is involved with Per [facility], pt is involved with the [facility] at [phone] but is not involved with any other programs. TigerText to Dr. Moncada requesting N consult when pt is medically stable as well as CARE team for ? depression/anxiety issues. Will await call backs from above to assist with d/c planning. Original Note: Met with pt to discuss d/c information Pt resides at home with family: lists his PCP as Dr. Lim with [facility]. Discussed DKA with insulin pump : asked about barriers to obtaining medication to which pt stated he had none including with transportation. Reminded pt of the importance of adhering to insulin regimen. Pt has transportation home: will call family. No additional needs identified.
[2020-11-29 10:27] LABS: Glucose, Whole Blood 255 mg/dL (60-115)
[2020-11-29 11:28] LABS: Glucose, Whole Blood 257 mg/dL (60-115)
--- NOTE | 2020-11-29 11:30 | PC.NURSE ---
POC > 250 notified pre protocol.
[2020-11-29 11:46] LABS: pH VBG 7.37 (7.32-7.43)
[2020-11-29 11:47] LABS: Base Excess VBG -2.9 mmol/L; HCO3 VBG 21 mmol/L; PCO2 VBG 36 mmHg; PO2 VBG 57 mmHg
--- NOTE | 2020-11-29 12:06 | PC.NURSE ---
spoke with patients mother with permission from patient has concerns about patient ability to care for him self will touch base with toña
[2020-11-29 12:18] LABS: Anion Gap 13 (12-20); Blood Urea Nitrogen 10 mg/dL (9-16); Calcium 7.9 mg/dL (8.4-10.2); Carbon Dioxide 20 mmol/L (22-29); Chloride 108 mmol/L (96-108); Creatinine Clr Calc Pharmacy 138.1; Estimated Glomerular Filt Rate > 60; Glucose Random 229 mg/dL (60-115); Potassium 4.2 mmol/L (3.3-5.1); Sodium 137 mmol/L (135-145)
[2020-11-29 12:24] LABS: Glucose, Whole Blood 173 mg/dL (60-115)
[2020-11-29] MEDS: Insulin Glargine,Hum.rec.anlog 100 UNIT/ML 10 ML VIAL 20 UNIT SUBCUT (13:31)
[2020-11-29 13:35] LABS: Glucose, Whole Blood 114 mg/dL (60-115)
--- NOTE | 2020-11-29 14:00 | PM.CCN ---
Critical Care Event Note Summary Code activated: No Narrative: Patient has been evaluated by myself. Physician senior integration architect's history and physical note reviewed. Agree with documented with the following additions/corrections: On my exam patient is: Lethargic, but arousable. Systolic blood pressure in 110's. Normoxemia on room air. Alert and oriented. States that he is hungry. Abdomen is soft and nontender. Laboratory studies and imaging reviewed. Assessment and Plan: Diabetic ketoacidosis secondary to running out of insulin in the insulin pump. Titrated off insulin drip, continue Lantus and sliding scale insulin. Continue anticonvulsive therapy. Requires social work evaluation. Total critical care time: 0 Critical Care Time (minutes): 0
--- NOTE | 2020-11-29 14:20 | PC.NURSE ---
current poc 91, pt tolerating po lantus given ins gtt discomtinued
[2020-11-29 14:21] LABS: Glucose, Whole Blood 91 mg/dL (60-115)
--- NOTE | 2020-11-29 14:21 | PC.NURSE ---
called im[facility] to give report rn will call back
--- NOTE | 2020-11-29 14:48 | PC.NURSE ---
repoort given to dereck luu pt transport called to bring pt to [facility]
[2020-11-29 16:21] LABS: Glucose, Whole Blood 119 mg/dL (60-115)
[2020-11-29] MEDS: SUMAtriptan succinate 50 MG TABLET PO (18:20)
[2020-11-29 18:46] LABS: Anion Gap 9 (12-20); Blood Urea Nitrogen 9 mg/dL (9-16); Calcium 7.7 mg/dL (8.4-10.2); Carbon Dioxide 26 mmol/L (22-29); Chloride 104 mmol/L (96-108); Estimated Glomerular Filt Rate > 60; Glucose Random 264 mg/dL (60-115); Potassium 4.1 mmol/L (3.3-5.1); Sodium 135 mmol/L (135-145)
[2020-11-29 20:06] LABS: Glucose, Whole Blood 273 mg/dL (60-115)
[2020-11-29] MEDS: Divalproex Sodium 500 MG TABLET.DR PO (21:13)
[2020-11-29] MEDS: lamoTRIgine 100 MG TABLET PO (21:13)
[2020-11-29] MEDS: Insulin Lispro 100 UNIT/ML 3 ML VIAL SUBCUT (21:13)
[2020-11-30 03:52] VITALS: BP 148/93; PULSE 79; RESP 18; TEMP 37.1; O2SAT 99
[2020-11-30 04:59] LABS: MANUAL DIFF FLAG NO
[2020-11-30 05:02] LABS: Basophils Percent Auto 0.2 % (0-2); Eosinophils Percent Auto 0.6 % (0-4); Hematocrit 33.3 % (42-52); Hemoglobin 11.8 g/dl (14.0-18.0); Imm Gran Abs Auto 0.01 X10*3/uL (0.00-0.03); Imm Gran Pct Auto 0.2 % (0.0-0.4); Lymphocytes Absolute Auto 2.3 X10*3/uL (1.2-4.9); Mean Corpuscular HGB Conc 35.4 g/dl (31.0-36.0); Mean Corpuscular Hemoglobin 31.9 pg (27.0-33.0); Mean Platelet Volume 9.7 fL (9.4-12.4); Monocytes Absolute Auto 0.4 X10*3/uL (0.1-1.2); Monocytes Percent Auto 7.6 % (2-11); Neutrophils Absolute Auto 2.7 X10*3/uL (2.0-8.3); Neutrophils Percent Auto 49.4 % (45-73); Platelet Count 254 X10*3/uL (160-400); Red Cell Distribution Width 11.8 % (11.0-16.0); White Blood Count 5.4 X10*3/uL (4.8-10.8)
[2020-11-30 05:34] LABS: Albumin Level 3.5 g/dL (3.5-5.0); Anion Gap 11 (12-20); Blood Urea Nitrogen 6 mg/dL (9-16); Calcium 8.1 mg/dL (8.4-10.2); Carbon Dioxide 27 mmol/L (22-29); Chloride 103 mmol/L (96-108); Creatinine Clr Calc Pharmacy 152.5; Estimated Glomerular Filt Rate > 60; Glucose Random 208 mg/dL (60-115); Magnesium 1.6 mg/dL (1.6-2.6); Potassium 3.1 mmol/L (3.3-5.1); Sodium 138 mmol/L (135-145)
[2020-11-30 07:29] LABS: Glucose, Whole Blood 177 mg/dL (60-115)
[2020-11-30] MEDS: Venlafaxine HCl ER 37.5 MG CAP.ER.24H 75 MG PO (09:02)
[2020-11-30] MEDS: Divalproex Sodium 500 MG TABLET.DR PO (09:02)
[2020-11-30] MEDS: Insulin Lispro 100 UNIT/ML 3 ML VIAL SUBCUT (09:02)
[2020-11-30] MEDS: lamoTRIgine 100 MG TABLET PO (09:02)
[2020-11-30] MEDS: Insulin Glargine,Hum.rec.anlog 100 UNIT/ML 10 ML VIAL 20 UNIT SUBCUT (09:03)
--- NOTE | 2020-11-30 10:14 | P.DS_ITS ---
DS: Providers Provider Date of Service: 11/30/20 Date of admission: 11/29/20 02:24 Primary care physician: Davie Lim MD DS: Diagnosis Discharge Diagnosis (1) Diabetic ketoacidosis: Status: Acute (2) Headache, migraine: Status: Acute (3) Diabetes mellitus type 1: Status: Acute (4) Nausea: Status: Acute DS: Medications Discharge Medications Home Medications: Home Medications Medication Instructions Recorded Confirmed Lantus Solostar U-100 Insulin See Rx Instructions .ROUTE .COMPLEX 11/29/20 11/29/20 baclofen 1 tab PO TID 11/29/20 11/29/20 buprenorphine-naloxone [Suboxone] 1 strip SUBLINGUAL DAILY 11/29/20 11/29/20 dextroamphetamine-amphetamine 1 tab PO DAILY PRN 11/29/20 11/29/20 dextroamphetamine-amphetamine 1 cap PO QAM PRN 11/29/20 11/29/20 [Adderall XR] divalproex 1 tab PO BID 11/29/20 11/29/20 gabapentin 2 cap PO TID 11/29/20 11/29/20 insulin lispro [Admelog U-100 See Rx Instructions .ROUTE .COMPLEX 11/29/20 11/29/20 Insulin lispro] lamotrigine 1 tab PO BID 11/29/20 11/29/20 trazodone 1 tab PO BEDTIME PRN 11/29/20 11/29/20 venlafaxine 75 mg PO DAILY 11/29/20 11/29/20 DS: Summary Hospital Course Hospital Course: Admission note HPI The patient is a 25-year-old male with a past medical history of type 1 diabetes mellitus on an insulin pump, who presented to the emergency room with a complaint of headache. He reports headaches begin x3 days ago as well as fe eling weak and nauseous. He denies any vision changes/ sensitivity to light when headaches. He denies cough, shortness of breath, no fevers, no chills, abdominal pain, diarrhea and vomiting. 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 Patient does also report he is new using insulin pump, states it was given to him in the last month or 2. He states he usually follows basal rate/boluses. But was unsure the last couple of days as to how many times he gave himself a bolus. He believes he might around now off insulin. Laboratory data significant for blood gas: 7.24/30/118/13/-12.6. Sodium 132, bicarb 13, and anion gap 21 and glucose 339 Hospital course The patient was admitted to the ICU for treatment of diabetic ketoacidosis. He received IV fluid and IV insulin with good response over the course of treatment as he was kept on Lantus insulin and SSI with fair control of his blood sugar as he became able to tolerate diet. No source of infection identified. He reports not feeling of his insulin pump for the last 3 days before coming to the hospital. He reports having insulin supply at home and he well fail up the insulin pump. To follow-up with psychiatry team as outpatient regarding his psych medications. Time Spent with Patient Time attestation: Total time spent providing and/or coordinating discharge services: Discharge coordination time: Greater than 30 minutes Physical Exam Vital Signs: Vital Signs: Last Vital Signs Temp 98.7 F 11/30/20 03:52 Pulse 79 11/30/20 03:52 Resp 18 11/30/20 03:52 BP 148/93 H 11/30/20 03:52 Pulse Ox 99 11/30/20 03:52 Body Mass Index 20.2 Const: Other: Constitutional : Alert, oriented, not in distress Neck : Normal inspection, Supple Cardiovascular : RRR, S1 S2, no lower extremity edema Respiratory : Good bilateral air entry, no crackles, wheezes or rhonchi Gastrointestinal: soft, lax, Normal bowel sounds, Non tender Skin : Warm/Dry, No rash Neurological : Alert & oriented x3, No focal deficit DS: Data Data Completed and Pending Labs on day of discharge: Laboratory Results - last 24 hr 11/29/20 11/29/20 11/29/20 10:24 11:22 11:39 WBC RBC Hgb Hct MCV MCH MCHC RDW Plt Count MPV Immature Gran % (Auto) Neut % (Auto) Lymph % (Auto) [place] % (Auto) Eos % (Auto) Baso % (Auto) Lymph # (Auto) [place] # (Auto) Eos # (Auto) Baso # (Auto) Abs Immat Gran (auto) Absolute Neuts (auto) Absolute Nucleated RBC Nucleated RBC % (auto) VBG pH VBG pCO2 VBG pO2 VBG HCO3 VBG O2 Saturation VBG Base Excess Sodium 137 Potassium 4.2 Chloride 108 Carbon Dioxide 20 L Anion Gap 13 BUN 10 Creatinine 0.74 Estim Creat Clear Calc 138.1 Estimated GFR > 60 POC Glucose 255 H 257 H Random Glucose 229 H D Calcium 7.9 L Phosphorus Magnesium Albumin 11/29/20 11/29/20 11/29/20 11:39 12:21 13:27 WBC RBC Hgb Hct MCV MCH MCHC RDW Plt Count MPV Immature Gran % (Auto) Neut % (Auto) Lymph % (Auto) [place] % (Auto) Eos % (Auto) Baso % (Auto) Lymph # (Auto) [place] # (Auto) Eos # (Auto) Baso # (Auto) Abs Immat Gran (auto) Absolute Neuts (auto) Absolute Nucleated RBC Nucleated RBC % (auto) VBG pH 7.37 VBG pCO2 36 VBG pO2 57 VBG HCO3 21 VBG O2 Saturation 90.0 VBG Base Excess -2.9 Sodium Potassium Chloride Carbon Dioxide Anion Gap BUN Creatinine Estim Creat Clear Calc Estimated GFR POC Glucose 173 H 114 Random Glucose Calcium Phosphorus Magnesium Albumin 11/29/20 11/29/20 11/29/20 14:17 16:17 18:07 WBC RBC Hgb Hct MCV MCH MCHC RDW Plt Count MPV Immature Gran % (Auto) Neut % (Auto) Lymph % (Auto) [place] % (Auto) Eos % (Auto) Baso % (Auto) Lymph # (Auto) [place] # (Auto) Eos # (Auto) Baso # (Auto) Abs Immat Gran (auto) Absolute Neuts (auto) Absolute Nucleated RBC Nucleated RBC % (auto) VBG pH VBG pCO2 VBG pO2 VBG HCO3 VBG O2 Saturation VBG Base Excess Sodium 135 Potassium 4.1 Chloride 104 Carbon Dioxide 26 Anion Gap 9 L BUN 9 Creatinine 0.78 Estim Creat Clear Calc 131.0 Estimated GFR > 60 POC Glucose 91 119 H Random Glucose 264 H Calcium 7.7 L Phosphorus Magnesium Albumin 11/29/20 11/30/20 11/30/20 19:50 04:22 04:22 WBC 5.4 RBC 3.70 L Hgb 11.8 L Hct 33.3 L MCV 90.0 MCH 31.9 MCHC 35.4 RDW 11.8 Plt Count 254 MPV 9.7 Immature Gran % (Auto) 0.2 Neut % (Auto) 49.4 Lymph % (Auto) 42.0 H [place] % (Auto) 7.6 Eos % (Auto) 0.6 Baso % (Auto) 0.2 Lymph # (Auto) 2.3 [place] # (Auto) 0.4 Eos # (Auto) 0.0 Baso # (Auto) 0.0 Abs Immat Gran (auto) 0.01 Absolute Neuts (auto) 2.7 Absolute Nucleated RBC 0.000 Nucleated RBC % (auto) 0.0 VBG pH VBG pCO2 VBG pO2 VBG HCO3 VBG O2 Saturation VBG Base Excess Sodium 138 Potassium 3.1 L D Chloride 103 Carbon Dioxide 27 Anion Gap 11 L BUN 6 L Creatinine 0.67 Estim Creat Clear Calc 152.5 Estimated GFR > 60 POC Glucose 273 H Random Glucose 208 H Calcium 8.1 L Phosphorus 2.0 L Magnesium 1.6 Albumin 3.5 11/30/20 07:22 WBC RBC Hgb Hct MCV MCH MCHC RDW Plt Count MPV Immature Gran % (Auto) Neut % (Auto) Lymph % (Auto) [place] % (Auto) Eos % (Auto) Baso % (Auto) Lymph # (Auto) [place] # (Auto) Eos # (Auto) Baso # (Auto) Abs Immat Gran (auto) Absolute Neuts (auto) Absolute Nucleated RBC Nucleated RBC % (auto) VBG pH VBG pCO2 VBG pO2 VBG HCO3 VBG O2 Saturation VBG Base Excess Sodium Potassium Chloride Carbon Dioxide Anion Gap BUN Creatinine Estim Creat Clear Calc Estimated GFR POC Glucose 177 H Random Glucose Calcium Phosphorus Magnesium Albumin Discharge Plan Discharge Patient Disposition: Home, Self-Care Referrals: Davie Lim MD [Primary Care Provider] - Discharge Medications: Continued venlafaxine 37.5 mg capsule,extended release 24hr 75 mg PO DAILY RF: 0 trazodone 50 mg tablet 1 tab PO BEDTIME PRN (Reason: Insomnia) RF: 0 baclofen 20 mg tablet 1 tab PO TID RF: 0 dextroamphetamine-amphetamine [Adderall XR] 20 mg capsule,extended release 24hr 1 cap PO QAM PRN (Reason: RESTLESSNESS) RF: 0 divalproex 500 mg tablet extended release 24 hr 1 tab PO BID RF: 0 dextroamphetamine-amphetamine 15 mg tablet 1 tab PO DAILY PRN (Reason: RESTLESSNESS) RF: 0 gabapentin 300 mg capsule 2 cap PO TID RF: 0 insulin lispro [Admelog U-100 Insulin lispro] 100 unit/mL solution See Rx Instructions .ROUTE .COMPLEX RF: 0 lamotrigine 100 mg tablet 1 tab PO BID RF: 0 Lantus Solostar U-100 Insulin 100 unit/mL (3 mL) insulin pen See Rx Instructions unit .ROUTE .COMPLEX RF: 0 buprenorphine-naloxone [Suboxone] 12-3 mg film 1 strip sublingual DAILY RF: 0 Discharge Orders: Discharge Order (Routine); Ordered 11/30/20 Ordered By: Ondina Marin Diet: advance to usual diet Activity on Discharge: As tolerated Stand Alone Forms: Patient Portal Discharge page Visit Report Forms: Patient Portal Discharge page Care Plan Goals: Read below Health Concerns: Read below Plan of Treatment: You were admitted to the hospital for treatment of diabetic ketoacidosis secondary to not receiving enough insulin through your insulin pump. You were treated with IV fluid and IV insulin with good response in the ICU. Your diet was advanced and you were able to tolerate food. Continue your home medications and fill your insulin pump. To follow-up with psychiatry team regarding her psych medications.
--- NOTE | 2020-11-30 10:54 | MHC.CM.PN ---
pt dcd home is arranging own transportaion
== END 2020-11-30 12:15 | disposition home or self-care (01) | DRG 420 ==
LOC: HO.ED 11-29 01:53 → HO.EDOVER 11-29 02:38 → HO.ICU 11-29 08:17 → HO.IMC 11-29 14:10
PROVIDERS: Registered Nurse Community Health; Admitting Provider Internal Medicine Pulmonary Disease; Emergency Provider Internal Medicine; PCP Pediatrics; Visit Provider Student in an Organized Health Care Education/Training Program
DX: E10.10 Type 1 diabetes mellitus with ketoacidosis without coma (principal); F11.20 Opioid dependence, uncomplicated; F17.210 Nicotine dependence, cigarettes, uncomplicated; G43.009 Migraine without aura, not intractable, without status migrainosus; E86.0 Dehydration; Z71.6 Tobacco abuse counseling; Z96.41 Presence of insulin pump (external) (internal); Z20.822 Contact with and (suspected) exposure to COVID-19; Z79.4 Long term (current) use of insulin; Z79.899 Other long term (current) drug therapy
CPT/HCPCS: 36415; 71045; 80048; 80076; 81003; 82009; 82040; 82803; 82947; 83690; 83735; 84100; 85025; 87635; 96361; 96365; 96372; 96375; 99284; 99291; J2405; J3030

== ENCOUNTER 2024-04-13 15:19 | Outpatient (REF) | payer OTHER, SELFPAY ==
[2024-04-13 15:34] LABS: MANUAL DIFF FLAG NO
[2024-04-13 15:50] LABS: Basophils Percent Auto 0.7 % (0-2); Eosinophils Absolute Auto 0.1 X10*3/uL (0.0-0.4); Eosinophils Percent Auto 1.6 % (0-4); Hematocrit 41.1 % (42.0-52.0); Hemoglobin 14.3 g/dl (14.0-18.0); Imm Gran Abs Auto 0.01 X10*3/uL (0.00-0.03); Imm Gran Pct Auto 0.2 % (0.0-0.4); Lymphocytes Absolute Auto 1.8 X10*3/uL (1.2-4.9); Lymphocytes Percent Auto 39.6 % (20-40); Mean Corpuscular HGB Conc 34.8 g/dl (31.0-36.0); Mean Corpuscular Hemoglobin 30.8 pg (27.0-33.0); Mean Corpuscular Volume 88.6 fL (80.0-98.0); Mean Platelet Volume 10.2 fL (9.4-12.4); Monocytes Absolute Auto 0.4 X10*3/uL (0.1-1.2); Monocytes Percent Auto 8.9 % (2-11); Neutrophils Absolute Auto 2.2 x10*3/uL (2.0-8.3); Platelet Count 243 X10*3/uL (160-400); Red Blood Count 4.64 X10*6/uL (4.60-5.80); Red Cell Distribution Width 12.8 % (11.0-16.0); White Blood Count 4.5 X10*3/uL (4.8-10.8)
[2024-04-13 16:20] LABS: Valproate 42.7 mcg/mL (50.0-100.0)
[2024-04-13 16:43] LABS: Vitamin D 25-OH Total 15.9 ng/mL (>30)
[2024-04-13 16:58] LABS: Folate 15.1 ng/mL (> or = 4.0); Vitamin B12 1067 pg/mL (200-900)
[2024-04-17 02:14] LABS: Lamotrigine Lamictal <0.5 mcg/mL (2.5-15.0)
== END 2024-04-13 15:20 | disposition home or self-care (01) ==
LOC: HO.LAB 15:19
PROVIDERS: Psychiatry & Neurology Neurology; Visit Provider Internal Medicine
DX: G40.909 Epilepsy, unspecified, not intractable, without status epilepticus (principal)
CPT/HCPCS: 36415; 80164; 80175; 82306; 82607; 82746; 85025

== ENCOUNTER 2025-04-28 13:19 | Outpatient (AMB) | payer OTHER, SELFPAY ==
--- NOTE | 2025-04-28 13:29 | A.OFFVIS_ITS ---
Intake Visit Reasons: 6m Allergies No Known Allergies Allergy (Verified 11/28/20 18:06) Medication List - Last Reconciled 04/28/25 by Edwin Bull MD baclofen 1 tab PO TID buprenorphine-naloxone 12-3 mg (Suboxone) 1 strip sublingual DAILY cholecalciferol (vitamin D3) 50 mcg PO DAILY dextroamphetamine-amphetamine 15 mg 1 tab PO DAILY PRN dextroamphetamine-amphetamine 20 mg ER (Adderall XR) 1 cap PO QAM PRN divalproex ER 1 tab PO BID gabapentin 2 caps PO TID insulin glargine (Lantus Solostar U-100 Insulin) See Protocol FOR PUMP FAILUIRE insulin lispro (Admelog U-100 Insulin lispro) PT USES INSULIN PUMP lamotrigine 1 tab PO BID lisdexamfetamine (Vyvanse) 40 mg PO QAM trazodone 1 tab PO BEDTIME PRN venlafaxine ER 75 mg PO DAILY HPI Comments Details: 30 yo RH man with insulin-dependent diabetes, 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 He was seeing things, hearing things, and had cutting behavior. Seizures started in teen years when he was treated at [facility]. He was drinking some alcohol then. Over the years, he was treated for behavioral issues and epilepsy. Seizures included smaller or absence and bigger ones. Smaller ones included a second or two of eye flickering and spacing out. Bigger ones resulted in an right arm going up, sudden falling, loss of consiousness, and generalized shaking. Shaking had lasted up to five minutes.) [facility] Medical History (Updated 04/28/25 @ 13:34 by Edwin Bull MD) Depression with anxiety Epilepsy Chromosomal abnormality, unspecified Encephalopathy Headache, migraine History of heroin abuse Diabetes mellitus type 1 Social History Alcohol intake: never service: No Current occupational status: unemployed Review of Systems Const Details: Constitutional:?No fever, chills, fatigue, weight loss, or night sweats. HEENT:?No headache, vision changes, hearing loss, nasal congestion, sore throat. Neurological:?No dizziness, syncope, seizures, numbness, tingling, weakness, tremors, memory loss. Psychiatric:?No anxiety, depression, mood swings, sleep disturbance, or hallucinations. Endocrine:?No heat/cold intolerance, polydipsia, polyuria, or hair/skin changes. Hematologic/Lymphatic:?No easy bruising, bleeding, or lymphadenopathy. Integumentary (Skin):?No rash, lesions, itching, or color changes. ? Physical Exam Neuro Other: Mental Status: Alert and oriented to person, place, and time. Normal attention. Normal spontaneous speech, fluency, and comprehension. No obvious issues with mood and memory. Affect is appropriate. Cranial Nerves: CN II: Visual aguilar full to confrontation, visual acuity intact. CN III, IV, : Pupils equal, round, reactive to light and accommodation. Extraocular movements are normal. CN V: Facial sensation is normal. CN VII: Facial movements symmetrical. CN VIII: Hearing intact to bedside conversation is normal. CN IX, X: Palate elevates symmetrically. CN XI: Shoulder shrug and head turn symmetrical. CN XII: Tongue midline without atrophy or fasciculations. Extrapyramidal: Full facial expressions and blinking. No rigidity. Movements are appropriate with no tremor or abnormality. Speech: Normal; no dysarthria or tremor. Assessment & Plan Assessment & Plan (1) Epilepsy: Comment: EEG at off in 2023: One left surinder and slow wave MRI brain at [facility] in 2009: ok (reported). Code(s): G40.909 - Epilepsy, unspecified, not intractable, without status epilepticus Category: Medical Qualifiers: Epilepsy type: other generalized Intractability: not intractable Status epilepticus: without status epilepticus Qualified Code(s): G40.409 - Other generalized epilepsy and epileptic syndromes, not intractable, without status epilepticus (2) Chromosomal abnormality: Code(s): Q99.9 - Chromosomal abnormality, unspecified Category: Medical (3) Developmental delay, behavioral abnormalities, and neuropsychiatric disorder syndrome: Code(s): Q87.89 - Other specified congenital malformation syndromes, not elsewhere classified; R62.50 - Unspecified lack of expected normal physiological development in childhood; F48.9 - Nonpsychotic mental disorder, unspecified; R46.89 - Other symptoms and signs involving appearance and behavior Category: Medical (4) Chronic static encephalopathy: Code(s): G93.49 - Other encephalopathy Category: Medical Plan Impression: 1. 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 Epilepsy probably including complex partial and secondarily generalized seizures, relatively control 3. Behavioral disorder from above, not having any psychotic symptoms at this time Recommendations: 1. Divalproic acid 500 mg twice a day 2. Gabapentin 800 mg 3 times a day 3. Lamotrigine 100 mg twice a day Orders: Orders Liver Panel Today G40.409 - Other generalized epilepsy and epileptic syndromes, not intractable, without status epilepticus Medications: New divalproex 500 mg PO BID 180 tabs 1RF gabapentin 800 mg PO TID 270 tabs 1RF lamotrigine 100 mg PO BID 180 tabs 1RF Coding Level of Care Code Tele Est Pt Level 5 (18485) Diagnoses Other generalized epilepsy, not intractable, without status epilepticus G40.409 Epilepsy type: other generalized Intractability: not intractable Status epilepticus: without status epilepticus Chromosomal abnormality Q99.9 Developmental delay, behavioral abnormalities, and neuropsychiatric disorder syndrome Q87.89; R62.50; F48.9; R46.89 Chronic static encephalopathy G93.49
--- OUTSIDE RECORDS SUMMARY | 2025-04-28 14:07 | XMS_ITS | Clinical Summary ---
Author Organization [facility] Address [address] [place] [id number] Care Team Providers Care Keeler Polygraph Operator Name Role Phone Davie Lim MD Primary Care Provider Unava ilable Allergies No known active allergies Medications hydrOXYzine HCl (ATARAX) 25 MG tablet Take 25 mg by mouth 2 (two) times a day as needed. Active gabapentin (NEURONTIN) 300 MG capsule Take 300 mg by mouth 2 (two) times a day. Active docusate sodium (COLACE) 100 MG capsule Take 100 mg by mouth 2 (two) times a day as needed for constipation . Active lactase (LACTAID) 3000 units tablet Take 3,000 Units by mouth 3 (three) times a day with meals. Active ibuprofen (MOTRIN) 600 MG tablet Take 600 mg by mouth 4 times daily (every 6 hours) as needed for mild pain. Active insulin glargine (LANtus/SEMGLEE) 100 units/mL injectionIndicat ions:Status epilepticus (HCC) Inject 0.16 mL (16 Units total) under the skin 2 (two) times a day. 9.6 mL 01/31/2022 Active lacosamide (VIMPAT) 200 MG Tab tabletIndication s:Status epilepticus (HCC) Take 1 tablet (200 mg total) by mouth every 12 (twelve) hours around the clock. 60 tablet 01/31/2022 Active lamoTRIgine (LaMICtal) 25 MG tabletIndication s:Status epilepticus (HCC) Take 5 tablets (125 mg total) by mouth 2 (two) times a day. 300 tablet 01/31/2022 Active pancrelipase, Uah-Kjfm-Lgzq, (ZENPEP) 5000-[address] Zheng capsuleIndicatio ns:Status epilepticus (HCC) Take 1 capsule (5,000 units of lipase total) by mouth 3 (three) times a day with meals. 90 capsule 01/31/2022 Active cephALEXin (KEFLEX) 250 mg capsuleIndicatio ns:Status epilepticus (HCC) Take 1 capsule (250 mg total) by mouth every 6 (six) hours around the clock. 16 capsule 01/31/2022 Active folic acid (FOLVITE) 1 MG tabletIndication s:Status epilepticus (HCC) Take 1 tablet (1 mg total) by mouth daily. Do not start before February 01, 2022. 30 tablet 02/01/2022 Active valproate (DEPAKENE) 250 mg/5 mL oral solutionIndicati ons:Status epilepticus (HCC) Take 5 mL (250 mg total) by mouth every 6 (six) hours. 600 mL 01/31/2022 Active thiamine mononitrate (VITAMIN B-1) 100 MG tabletIndication s:Status epilepticus (HCC) Take 2 tablets (200 mg total) by mouth daily. Do not start before February 01, 2022. 60 tablet 02/01/2022 Active multivitamin with minerals Tab tabletIndication s:Status epilepticus (HCC) Take 1 tablet by mouth daily. Do not start before February 01, 2022. 30 tablet 02/01/2022 Active insulin lispro (HumaLOG) 100 units/mL injectionIndicat ions:Type 2 diabetes mellitus without complication, unspecified whether alf insulin use (HCC) Inject 0.01-0.04 mL (1-4 Units total) under the skin nightly. 10 mL 01/31/2022 Active Active Problems Problem Noted Date Diagnosed Date Status epilepticus 01/26/2022 Social History Tobacco Use Types Packs/Day Years Used Date Smoking Tobacco: Never Assessed Sex and Gender Information Value Date Recorded Sex Assigned at Not on file Legal Sex Male 1:22 AM EDT Gender Identity Not on file Sexual Orientation Not on file Last Filed Vital Signs Vital Sign Reading Time Taken Comments Blood Pressure 99/62 01/31/2022 4:00 PM EDT Pulse 95 01/31/2022 4:00 PM EDT Temperature 37 C (98.6 F) 01/31/2022 4:00 PM EDT Respiratory Rate 20 01/31/2022 4:00 PM EDT Oxygen Saturation 100% 01/31/2022 4:00 PM EDT Inhaled Oxygen Concentration - - Weight 73.3 kg (161 lb 9.6 oz) 01/31/2022 6:00 A M EDT Height 178 cm (5' 10.08 ) 01/26/2022 6:19 AM EDT Body Mass Index 23.13 01/26/2022 6:19 AM EDT Plan of Treatment Health Maintenance Due Date Last Done Comments Hepatitis C Virus Screening 1995 HIV Screening 2008 DTaP/Tdap/Td Vaccines (1 - Tdap) 2014 Hepatitis B Vaccines (1 of 3 - 19+ 3-dose series) 2014 COVID-19 Vaccine (2 - 2023-2 5 season) 2024 02/02/2021 Influenza Vaccine 05/14/2025 10/31/2009 Foot Exam Discontinued 01/26/2022 HPV Vaccines Aged Out No longer eligi ble based on patient's age to complete this topic Pneumococcal Vaccine: Pediat franca (0-5 Years) and At-Risk Patients (6 to 49 Years) Aged Out No longer eligible b ased on patient's age to complete this topic Insurance MEDICAID OUT OF STATE [facility] Advance Directives * Full Code (Latest Code Status on File) Date Activated Date Inactivated Comments 01/26/2022 5:48 AM Care Teams Keeler Polygraph Operator Relationship Specialty Start Date End Date Davie Lim MD PCP - General 01/26/22
--- OUTSIDE RECORDS SUMMARY | 2025-04-28 14:08 | XMS_ITS | Clinical Summary ---
Author Organization [facility] Address [address] [place] [address] Phone Care Team Providers Care Bobcat Driver/Labor Name Role Phone Tuyet Carter MD Primary Care Provider Allergies No known active allergies Medications blood-glucose transmitter device 1 Device by Not Applicable route. 4 Active pen needle, diabetic (Insupen Pen Needle) 32 gauge x /32 needle 4 Sticks by Not Applicable route. 4 Active polyethylene glycol (MIRALAX) 17 gram packet Take 17 g by mouth. 3 Active lipase-protease -amylase (Creon) 36,000-114,000- 180,000 unit capsule,delayed release(DR/EC) Take 1 capsule by mouth. 4 Active gabapentin (NEURONTIN) 800 mg tablet Take 1 tablet (800 mg total) by mouth 3 (three) times a day. 90 each 4 4 Active lamoTRIgine (LaMICtal) 100 mg tablet Take 1 tablet (100 mg total) by mouth 2 (two) times a day. for 90 days Active divalproex (DEPAKOTE ER) 500 mg 24 hr tablet Take 1 tablet (500 mg total) by mouth 2 (two) times a day. 3 Active blood-glucose meter,continuou s (FreeStyle Ok 3 Rio) miscIndications :Diabetes mellitus type 1, with complication, on terminal operations manager insulin pump ([facility]/HCC V24, [facility]/HCC V28) every 14 (fourteen) days. 30 each 5 Active lisdexamfetamin e (VYVANSE) 40 mg capsule Take 1 capsule (40 mg total) by mouth 1 (one) time each day in the morning for 28 days. Max Daily Amount: 40 mg 28 capsule 5 Active acamprosate (CAMPRAL) 333 mg EC tablet Take 2 tablets (666 mg total) by mouth 3 (three) times a day. Do not crush, chew, or split. 180 each 5 Active blood-glucose meter kit 1 each 4 (four) times a day (before meals and nightly). 1 each 5 02/01/20 26 Active folic acid (FOLVITE) 1 mg tabletIndicatio ns:Alcohol abuse Take 1 tablet (1 mg total) by mouth 1 (one) time each day. 90 each 5 Active thiamine 100 mg tabletIndicatio ns:Alcohol abuse Take 1 tablet (100 mg total) by mouth 1 (one) time each day. 90 tablet 5 Active venlafaxine XR (EFFEXOR-XR) 75 mg 24 hr capsule TAKE 1 CAPSULE BY MOUTH DAILY 90 capsule 5 Active insulin lispro (HumaLOG KwikPen) 100 unit/mL injection penIndications: Diabetes mellitus type 1, with complication, on group home insulin pump ([facility] V24, [facility] V28) Before meals as directed three times a day, max up to 15 units daily. 15 mL 2 5 03/22/20 26 Active blood-glucose sensor (FreeStyle Ok 3 Plus Sensor) deviceIndicatio ns:Diabetes mellitus type 1, with complication, on group home insulin pump ([facility] V24, [facility] V28) Box = Kit = EA, change sensor every 2 weeks 2 kit 11 5 Active baclofen (LIORESAL) 10 mg tablet TAKE 1 TABLET BY MOUTH 3 TIMES DAILY FOR ITCHY FEELING INSIDE SKIN 90 tablet 5 Active insulin glargine (LANTUS SoloStar) 100 unit/mL (3 mL) injection pen Inject 30 Units under the skin 1 (one) time each day in the morning. 30 mL 1 5 Active insulin glargine (LANTUS SoloStar) 100 unit/mL (3 mL) injection pen Inject 30 Units under the skin 1 (one) time each day in the morning. 15 mL 04/27/20 25 Discontin ued(Reord er) Active Problems Problem Noted Date Diagnosed Date Alcohol withdrawal syndrome without complication ([facility] V24, [facility] V28) 01/27/2025 URI (upper respiratory infection) 12/14/2022 Overview (08/07/2024): 12/14/2022 Advised to test for covid otis as there are meds (paxlovid) that could help in setting of his DM Seizure ([facility] V24, [facility] V28) 02/02/2022 Overview (08/07/2024): 05/17/2023 Missed multiple appts with Dr Barnes Reassured by no recent sx On lamictal/VPA//gabapentin Urinary retention 02/02/2022 Overview (08/07/2024): 05/17/2023 Again Reassurd by lack of sx and positive stream and emptying Didn't go to urology appt that we made for him Diabetic gastroparesis ([facility] V24, [facility] V28 ) 11/02/2021 Shoulder pain 10/18/2021 Overview (08/07/2024): 12/01/2021 Needs to reschedule PT Come for next visit in person Dry skin 09/20/2021 Overview (08/07/2024): 09/20/2021 Recommend skin moisturizer Not clear component of eczema, fu 1 week Elevated blood pressure reading 09/20/2021 Overview (08/07/2024): 09/27/2021 Improved, monitor Diabetes mellitus type 1, wi th complication, on terminal operations manager insulin pump ([facility] V24, [facility] V28) 06/22/2021 Overview (08/07/2024): 05/17/2023 Has dexcom, falls off with sweat. Will ask our team to reconnect with endocrine Opioid use disorder 12/12/2020 Overview (08/07/2024): 05/17/2023 Getting sublicade via [facility] Pancreatic insufficiency 12/22/2019 Overview (08/07/2024): 05/17/2023 Sx are stable, Continue creon, dose for snacks (lower dose) which has been helpful Neuropathy of both feet 07/28/2019 Overview (08/07/2024): 05/17/2023 Better relief with better glucose control, Continue gabapentin Anxiety 06/18/2018 Overview (08/07/2024): 05/17/2023 Reports sx well controlled now that not working Connected with [facility] Care Alcohol abuse 09/27/2016 Overview (08/07/2024): 01/23/2023 Reports abstinence Scoliosis of thoracic spine 01/31/2010 ADD (attention deficit disorder) 03/04/2008 Overview (08/07/2024): 05/17/2023 Seems to really be improving, Gets vyvanse from [facility] care and has VNA and lock box Discussed positive benefits of being organized - ie stress relieving and encouraged him to consider committing to it From prior: Suspect that this is untreated is underlying his difficulty in taking care of the rest of his medical issues Met with chd therapist, awaiting psychiatry Depression, major 10/02/2006 Overview (08/07/2024): 02/02/2022 Had psych assessment in the hospital determined ok for dc Denies SI now All psychiatric meds were stopped in the hospital, unclear if the concern was for seizure threshold We will work to get him back into psychiatry Encounters Date Type Department Care Team Description 03/22/2025 3:15 PM EDT Office Visit Endocrinology [facility] [address] [place] [phone] Alejandro Martinez MD Diabetes mellitus type 1, with complication, on terminal operations manager insulin pump ([facility] V24, [facility] V28) 02/10/2025 2:45 PM EDT Office Visit Adult Medicine [address] [phone] Jonathan Dowell PA Polysubstance use disorder (Primary Dx); History of seizure due to alcohol withdrawal; Urinary retention; Alcohol abuse; Attention deficit hyperactivity disorder (ADHD), unspecified ADHD type; Diabetes mellitus type 1, with complication, on terminal operations manager insulin pump ([facility] V24, [facility] V28) 02/10/2025 Telephone Adult Medicine [address] [phone] Jonathan Dowell PA 01/27/2025 3:15 PM EDT - 01/31/2025 12:38 PM EDT Hospital Encounter [facility] [address] [place] [phone] Vivek Torres MD Maduakor, Emmanuel C, MD Kokosadze, Estate, MD Alcohol withdrawal syndrome without complication ([facility] V24, [facility] V28) (Primary Dx) Discharge Disposition: Home or Self Care from Last 3 Months Immunizations Name Administration Dates Next Due DTP 10/13/1996, 5,1995,06/20 DTaP (Infanrix) 6wks to less than 7yo 05/16/1999 EUtS-LZZ-DTF (Pentacel) 2mo to less than 5yo 07/14/1996,1995,1995,06/20 EGkK-HhpA-YTE (Pediarix) 6 w ks to less than 7yo 05/16/1999,1995,1995,06/20 H1N1 Inj Preservative Free 10/31/2009 HPV 9-valent (Gardisil) 9yo to less than 46yo 02/25/2017 HPV, Quadrivalent 05/04/2014,05/01/2013 Hepatitis B Pediatric (Enger ix B; Recombivax HB) to less than 20 yo 01/28/1996,1995,1995 Hib (HbOC) 07/14/1996, 5,1995,06/20 Influenza Quadravalent, MDCK , 0.5ml, preservative free (Flucelvax) 6mo and older 06/17/2024,08/25/2021,10/08/2019 Influenza Quadravalent, MDCK , 0.5ml, with preservative (Flucelvax) 6mo and older 08/01/2018 Influenza Quadrivalent, 0.5m l, preservative free (Fluarix; FluLaval; Fluzone) ages 6mo and older (Afluria) 3yo and older 07/21/2020 Influenza trivalent, 0.5mL, preservative free (Fluarix; FluLaval; Fluzone) ages 6mo and older (Afluria) 3 years and older 07/21/2020 Influenza trivalent, with pr eservative (Fluzone; Afluria) 6mo and older 12/27/2017,10/31/2009 MMR, measles mumps and rubel la Live (Priorix; M-M-R II) 12mo and older 05/17/2000,07/14/1996 Meningococcal MCV4P 05/01/2013,04/18/2007 OPV 05/16/1999, 5,1995,06/20 Pneumococcal polysaccharide 23 valent (Pneumovax 23) 2yo and older 12/27/2017,05/04/2014 Tdap Tetanus diptheria acell ular pertussis (Boostrix; Adacel) 7yo and older 07/28/2018,02/25/2017,04/17/2006 Varicella live (Varivax) 12m o and older 10/31/2009,04/19/1997 Surgical History Surgery Date Site/Laterality Comments UMBILICAL HERNIA REPAIR 05/23/99 PROCEDURE: LAP UMBILICAL HERNIA REPAIR; COMMENT: ALSO RIGHT ING.HERNIA Medical History Medical History Date Comments Encephalopathy, unspecified DX:E ncephalopathy, unspecified; COMMENT: 11/18 Unspecified hearing loss DX:Unsp ecified hearing loss; COMMENT: 06/17 Depression DX:Depression Poorly controlled type 1 roberto betes mellitus ([facility] V24, [facility] V28) 04/15/2020 DX:Poorly controll ed type 1 diabetes mellitus (HCC) Family History Medical History Relation Name Comments Coronary artery disease Aunt Maternal Other: gallbladder disease Aunt Maternal Coronary artery disease Father Diabetes Father father is on in sulin since 2008, and PRF Other: alcoholism Father Other: barretts esophagus Father Colon cancer Maternal Grandfather Coronary artery disease Maternal Grandfather Coronary artery disease Maternal Grandmother Bladder Cancer Paternal Grandfather Diabetes Paternal Grandfather Other: thyroid cancer Paternal Grandmother Coronary artery disease Uncle Maternal Relation Name Status Comments Aunt Maternal Alive Father Alive Maternal Grandfather Maternal Grandmother Mother Alive Paternal Grandfather Paternal Grandmother Uncle Maternal Alive Social History Tobacco Use Types Packs/Day Years Used Date Smoking Tobacco: Every Day Smokeless Tobacco: Never Tobacco Cessation:Ready to Q uit: Not Asked; Counseling Given: Not Answered Comments:Home made filtered 20 a day Alcohol Use Standard Drinks/Week Comments Yes 0 (1 standard drink = 0.6 oz pur e alcohol) 1/2 pint liquor daily Housing Instability Answer Date Recorde d Are you worried that in the next 2 months you may not have stable housing? No 01/28/2025 Food Access & Nutrition Answer Date Rec orded Do you have access to a vari ety of food including fruits and vegetables? Yes 01/28/2025 Access to Healthcare Answer Date Record ed Within the last 3 months, ho w many times did you visit the emergency department for your medical care? 0 01/28/2025 Health Literacy Answer Date Recorded How often do you need to hav e someone help you when you read instructions, pamphlets, or other written material from your doctor or pharmacy? Sometimes 01/28/2025 Caregiver: How often do you need to have someone help you when you read instructions, pamphlets, or other written material from your doctor or pharmacy? Not on file 01/28/2025 Financial Risk Answer Date Recorded How hard is it for you to pa y for the very basics like food, housing, medical care, and air conditioning / heating? Not very hard 01/28/2025 Transportation Answer Date Recorded Has the lack of transportati on kept you from meetings, work, or from getting things needed for daily living? No Has the lack of transportati on kept you from medical appointments or from getting medications? No 01/28/2025 Social Isolation Answer Date Recorded How often do you feel lonely or isolated from those around you? Sometimes 01/28/2025 Food Risk Answer Date Recorded Within the past 12 months we worried whether our food would run out before we got money to buy more. Never true 01/28/2025 Within the past 12 months th e food we bought just didn't last and we didn't have money to get more. Never true 01/28/2025 Dependent Care Answer Date Recorded Do you need help finding or paying for care for your loved ones. For example, child nutrition assistant or elderly care for an older adult? Patient declined 01/28/2025 Education Answer Date Recorded Do you think completing more education or training, like finishing a GED, going to college, or learning a trade, would be helpful for you? Patient declined 01/28/2025 Employment and Income Answer Date Recor ded During the last four weeks, have you been actively looking for work? Patient declined 01/28/2025 Living Situation Answer Date Recorded What is your living situation? 0 01/28/2025 Interpersonal Safety Answer Date Record ed Physical Abuse 01/28/2025 Verbal Abuse 01/28/2025 Sex and Gender Information Value Date Recorded Sex Assigned at Male 10/12/2024 4:01 PM EST Legal Sex Male 12:13 AM EST Gender Identity Male 10/12/2024 4:01 PM EST Sexual Orientation Choose not to disclose 2024 3:58 PM EDT Obstetrics History Last Filed Vital Signs Vital Sign Reading Time Taken Comments Blood Pressure 135/97 03/22/2025 3:17 PM EDT Pulse 113 03/22/2025 3:17 PM EDT Temperature 36.7 C (98.1 F) 03/22/2025 3:17 PM EDT Respiratory Rate 14 01/31/2025 8:19 AM EDT Oxygen Saturation 99% 01/31/2025 8:19 AM EDT Inhaled Oxygen Concentration - - Weight 66.7 kg (147 lb) 03/22/2025 3:17 PM EDT Height 177.8 cm (5' 10 ) 03/22/2025 3:17 PM EDT Body Mass Index 21.09 03/22/2025 3:17 PM EDT Plan of Treatment Upcoming Encounters Date Type Department Care Team (Late st Contact Info) Description 05/18/2025 3:30 PM EDT Office Visit Adult Medicine - [facility] [address] [place] [phone] Tuyet Carter MD [address] [place] [address] Health Maintenance Due Date Last Done Comments Diabetes: Annual Retina Eye Exam 2005 Hepatitis A Vaccines (1 of 2 - Risk 2-dose series) 2014 Pneumococcal Vaccine: Pediatrics (0 to 5 Years) and At-Risk Patients (6 to 49 Years) (2 of 2 - PCV) 12/27/2018 12/27/2017, 05/04/2014 Depression Screening 09/16/2022 COVID-19 Vaccine ( season) 2024 01/23/2022, 04/29/2021, 02/02/2021 Diabetes: Blood Sugar Control Test (HGBA1C) 08/01/2024 01/31/2024, 09/25/2023 Diabetes: Annual Urine Albumin-Creatinine Ratio (uACR) 01/30/2025 01/31/2024 Diabetes: Annual Foot Exam 02/09/2025 02/10/2024 Influenza Vaccine (#1) 2025 , 08/25/2021, 07/21/2020, Additional history exists Social Influencers of Health Screening 01/28/2026 01/28/2025 Diabetes: Annual GFR (Glomerular Filtration Rate) 01/31/2026 01/31/2025, 01/30/2025, 01/29/2025, Additional history exists DTaP,Tdap,and Td Vaccines (9 - Td or Tdap) 07/28/2028 07/28/2018, 02/25/2017, 04/17/2006, Additional history exists Cholesterol Screening (Lipid Panel) 01/30/2029 01/31/2024 HIB Vaccines Completed 07/14/1996, 10/1995, 1995, Additional history exists Hepatitis B Vaccines Completed 05/16/1999, 01/28/1996, 1995, Additional history exists IPV Vaccines Completed 05/16/1999, 08/0 12/1998, 07/14/1996, Additional history exists MMR Vaccines Completed 05/17/2000, 07/14/1996 Varicella Vaccines Completed 10/31/2009, 04/19/1997 Meningococcal ACWY Vaccine Completed 05/01/2013, HPV Vaccines Completed 02/25/2017, 04/14, 05/01/2013 HIV Screening Completed 08/01/2018 Hepatitis C Screening Completed 01/23/2023 Meningococcal B Vaccine Aged Out No l onger eligible based on patient's age to complete this topic RSV Immunization Patients Under 20 months Aged Out No longer eligible based on patient's age to complete this topic Procedures Procedure Name Priority Date/Time Associated Diagnosis Comments POCT GLUCOSE BLOOD Routine 01/31/2025 11 :32 AM EDT POCT GLUCOSE BLOOD Routine 01/31/2025 9: 51 AM EDT POCT GLUCOSE BLOOD Routine 01/31/2025 8: 21 AM EDT MAGNESIUM Routine 01/31/2025 6:06 AM EDT BASIC METABOLIC PANEL Routine 01/31/2025 6:06 AM EDT LAVENDER - EDTA Routine 01/31/2025 6:03 AM EDT EXTRA TUBES Routine 01/31/2025 6:03 AM EDT LAVENDER - EDTA Routine 01/31/2025 6:03 AM EDT EXTRA TUBES Routine 01/31/2025 6:03 AM EDT LAVENDER - EDTA Routine 01/31/2025 6:03 AM EDT EXTRA TUBES Routine 01/31/2025 6:03 AM EDT POCT GLUCOSE BLOOD Routine 01/31/2025 4: 10 AM EDT POCT GLUCOSE BLOOD Routine 01/31/2025 12 :16 AM EDT POCT GLUCOSE BLOOD Routine 01/30/2025 8: 06 PM EDT POCT GLUCOSE BLOOD Routine 01/30/2025 4: 09 PM EDT POCT GLUCOSE BLOOD Routine 01/30/2025 11 :03 AM EDT POCT GLUCOSE BLOOD Routine 01/30/2025 10 :35 AM EDT POCT GLUCOSE BLOOD Routine 01/30/2025 8: 01 AM EDT CBC WITH AUTO DIFFERENTIAL Routine 01/30/2025 6:33 AM EDT PHOSPHORUS Routine 01/30/2025 6:33 AM EDT CBC AND DIFFERENTIAL Routine 01/30/2025 6:33 AM EDT COMPREHENSIVE METABOLIC PANEL Routine 01/30/2025 6:33 AM EDT POCT GLUCOSE BLOOD Routine 01/30/2025 6: 24 AM EDT POCT GLUCOSE BLOOD Routine 01/29/2025 11 :45 PM EDT POCT GLUCOSE BLOOD Routine 01/29/2025 7: 01 PM EDT POCT GLUCOSE BLOOD Routine 01/29/2025 3: 57 PM EDT POCT GLUCOSE BLOOD Routine 01/29/2025 10 :54 AM EDT POCT GLUCOSE BLOOD Routine 01/29/2025 8: 56 AM EDT POCT GLUCOSE BLOOD Routine 01/29/2025 7: 55 AM EDT CBC WITH AUTO DIFFERENTIAL Routine 01/29/2025 6:35 AM EDT MAGNESIUM Routine 01/29/2025 6:35 AM EDT BASIC METABOLIC PANEL Routine 01/29/2025 6:35 AM EDT CBC AND DIFFERENTIAL Routine 01/29/2025 6:35 AM EDT POCT GLUCOSE BLOOD Routine 01/28/2025 7: 34 PM EDT POCT GLUCOSE BLOOD Routine 01/28/2025 7: 15 PM EDT POCT GLUCOSE BLOOD Routine 01/28/2025 3: 49 PM EDT POCT GLUCOSE BLOOD Routine 01/28/2025 11 :48 AM EDT POCT GLUCOSE BLOOD Routine 01/28/2025 9: 08 AM EDT LAVENDER - EDTA Routine 01/28/2025 5:38 AM EDT EXTRA TUBES Routine 01/28/2025 5:38 AM EDT BASIC METABOLIC PANEL Routine 01/28/2025 5:38 AM EDT PHOSPHORUS Routine 01/28/2025 5:38 AM EDT MAGNESIUM Routine 01/28/2025 5:38 AM EDT POCT GLUCOSE BLOOD Routine 01/28/2025 12 :48 AM EDT POCT GLUCOSE BLOOD Routine 01/28/2025 12 :22 AM EDT LAMOTRIGINE LEVEL STAT 01/27/2025 10: 00 PM EDT URINALYSIS WITH REFLEX MICROSCOPIC STAT 01/27/2025 7:46 PM EDT METHADONE SCREEN, URINE STAT 01/28/20 7:46 PM EDT PHENCYCLIDINE, URINE STAT 01/27/2025 7:46 PM EDT BUPRENORPHINE SCREEN, URINE STAT 01/27/2025 7:46 PM EDT DRUG ABUSE SCREEN 8A PANEL, URINE STAT 01/27/2025 7:46 PM EDT URINALYSIS WITH REFLEX MICROSCOPIC STAT 01/27/2025 7:46 PM EDT VALPROIC ACID LEVEL, TOTAL Add-On 01/27/2025 4:45 PM EDT ETHANOL STAT 01/27/2025 4:45 PM EDT BETA HYDROXYBUTYRATE STAT 01/27/2025 4:45 PM EDT MAGNESIUM STAT 01/27/2025 4:45 PM EDT LIPASE STAT 01/27/2025 4:45 PM EDT COMPREHENSIVE METABOLIC PANEL STAT 01/27/2025 4:45 PM EDT POCT GLUCOSE BLOOD Routine 01/27/2025 3: 58 PM EDT ECG 12-LEAD STAT 01/27/2025 3:56 PM EDT CBC WITH AUTO DIFFERENTIAL STAT 01/27/2025 3:45 PM EDT VENOUS BLOOD GAS STAT 01/27/2025 3:45 PM EDT OSMOLALITY STAT 01/27/2025 3:45 PM EDT CBC AND DIFFERENTIAL STAT 01/27/2025 3:45 PM EDT DIABETES FOOT EXAM Routine 02/10/2024 URINE ALBUMIN CREATININE RATIO Routine 01/31/2024 HEMOGLOBIN A1C Routine 01/31/2024 LIPID PANEL Routine 01/31/2024 HEPATITIS C SCREENING Routine 01/23/2023 HIV SCREENING Routine 08/01/2018 from Last 3 Months or Most Recently Relevant to Health Maintenance Results * (ABNORMAL) POCT Glucose, blood (01/31/2025 11:32 AM EDT) Only the most recent of25 resultswithin the time period is included. Glucose POCT 264(H) 70 - 100 mg/dL 01/31/2025 11:32 AM EDT [facility] Blood Capillary blood specimen / Unknown 01/31/2025 11:32 AM EDT 01/31/2025 11:33 AM EDT Marques Boyd MD LAB POINT OF CARE TE ST DOCKED DEVICE UNSOLICITED RESULTS Final Result [facility] [address] [place] [address], [place] [phone] * Magnesium (01/31/2025 6:06 AM EDT) Only the most recent of4 resultswithin the time period is included. Magnesium 2.3 1.9 - 2.6 mg/dL LAB CHEMISTRY METHOD 01/31/2025 7:47 AM EDT [facility] Blood Venous blood specimen / Unknown Venipuncture / Unknown 01/31/2025 6:06 AM EDT 01/31/2025 6:19 AM EDT Arti NETTLES LAB BLOOD ORDERABLES Final Result [facility] [address] [place] [address], * (ABNORMAL) Basic metabolic panel (01/31/2025 6:06 AM EDT) Only the most recent of3 resultswithin the time period is included. Sodium 133 133 - 145 mmol/L LAB CHEMISTRY METHOD 01/31/2025 8:12 AM [facility] Potassium 4.7 3.5 - 5.5 mmol/L LAB CHEMISTRY METHOD 01/31/2025 8:12 AM [facility] Chloride 97 96 - 110 mmol/L LAB CHEMISTRY METHOD 01/31/2025 8:12 AM [facility] CO2 30 21 - 32 mmol/L LAB CHEMISTRY METHOD 01/31/2025 8:12 AM [facility] Anion Gap 6 3 - 11 LAB CHEMISTRY METHOD 01/31/2025 8:12 AM [facility] Glucose 454(HH) 70 - 100 mg/dL LAB CHEMISTRY METHOD 01/31/2025 8:12 AM [facility] BUN 11 5 - 25 mg/dL LAB CHEMISTRY METHOD 01/31/2025 8:12 AM [facility] Creatinine 0.84 0.70 - 1.30 mg/dL LAB CHEMISTRY METHOD 01/31/2025 8:12 AM [facility] eGFR 121 >=60 mL/min/1. 73m2 LAB CHEMISTRY METHOD 01/31/2025 8:12 AM [facility] Comment:Calculation based on the Chronic Kidney Disease Epidemiology Collaboration (CKD-EPI) equation refit without adjustment for race. BUN/Creatinine Ratio 13.1 LAB CHEMISTRY METHOD 01/31/2025 8:12 AM [facility] Calcium 9.0 8.5 - 10.5 mg/dL LAB CHEMISTRY METHOD 01/31/2025 8:12 AM EDT [facility] Blood Venous blood specimen / Unknown Venipuncture / Unknown 01/31/2025 6:06 AM EDT 01/31/2025 6:19 AM EDT Arti NETTLES LAB BLOOD ORDERABLES Final Result Performing Organization Address City/[facility]/ZIP Co de Phone Number [facility] [address] [place] [address], [place] [phone] * Lavender tube (01/31/2025 6:03 AM EDT) Only the most recent of4 resultswithin the time period is included. Pathologist [facility] Extra Tube Hold for add-ons. 01/31/2025 8:01 AM EDT [facility] Comment:Auto resulted. Blood Venous blood specimen / Unknown Venipuncture / Unknown 01/31/2025 6:03 AM EDT 01/31/2025 6:23 AM EDT Marques Boyd MD LAB BLOOD ORDERABLES Final R esult Performing Organization Address City/[facility]/ZIP Co de Phone Number [facility] [address] [place] [address], [place] [phone] * (ABNORMAL) CBC auto differential (01/30/2025 6:33 AM EDT) Only the most recent of3 resultswithin the time period is included. WBC 5.9 4.8 - 10.8 K/[facility] HEMETOLOGY METHOD 01/30/2025 7:16 AM EDT [facility] RBC 4.20(L) 4.50 - 5.50 M/[facility] LAB HEMETOLOGY METHOD 01/30/2025 7:16 AM EDT [facility] Hemoglobin 13.3(L) 13.5 - 17.5 g/dL LAB HEMETOLOGY METHOD 01/30/2025 7:16 AM [facility] Hematocrit 38.6(L) 42.0 - 54.0 % LAB HEMETOLOGY METHOD 01/30/2025 7:16 AM [facility] MCV 91.9 79.0 - 98.0 FL LAB HEMETOLOGY METHOD 01/30/2025 7:16 AM [facility] MCH 31.7 27.0 - 32.0 pcg LAB HEMETOLOGY METHOD 01/30/2025 7:16 AM [facility] MCHC 34.5 32.0 - 37.0 g/dL LAB HEMETOLOGY METHOD 01/30/2025 7:16 AM [facility] RDW 12.0 11.0 - 15.0 % LAB HEMETOLOGY METHOD 01/30/2025 7:16 AM [facility] Platelets 204 130 - 400 K/mcL LAB HEMETOLOGY METHOD 01/30/2025 7:16 AM [facility] MPV 10.4 7.0 - 11.0 FL LAB HEMETOLOGY METHOD 01/30/2025 7:16 AM [facility] NRBC 0.0 <1.0 % LAB HEMETOLOGY METHOD 01/30/2025 7:16 AM [facility] NRBC Absolute 0.00 <0.10 K/mcL LAB HEMETOLOGY METHOD 01/30/2025 7:16 AM [facility] Neutrophils Relative 56.0 % LAB HEMETOLOGY METHOD 01/30/2025 7:16 AM [facility] Lymphocytes Relative 32.3 % LAB HEMETOLOGY METHOD 01/30/2025 7:16 AM [facility] Monocytes Relative 9.3 % LAB HEMETOLOGY METHOD 01/30/2025 7:16 AM [facility] Eosinophils Relative 1.7 % LAB HEMETOLOGY METHOD 01/30/2025 7:16 AM EDT [facility] Basophils Relative 0.5 % LAB HEMETOLOGY METHOD 01/30/2025 7:16 AM EDT [facility] Immature Granulocytes Relative 0.2 % LAB HEMETOLOGY METHOD 01/30/2025 7:16 AM EDT [facility] Neutrophils Absolute 3.30 1.50 - 7.00 K/mcL LAB HEMETOLOGY METHOD 01/30/2025 7:16 AM EDT [facility] Lymphocytes Absolute 1.90 1.00 - 5.00 K/mcL LAB HEMETOLOGY METHOD 01/30/2025 7:16 AM EDT [facility] Monocytes Absolute 0.55 0.20 - 1.00 K/mcL LAB HEMETOLOGY METHOD 01/30/2025 7:16 AM EDT [facility] Eosinophils Absolute 0.10 0.00 - 0.50 K/mcL LAB HEMETOLOGY METHOD 01/30/2025 7:16 AM EDT [facility] Basophils Absolute 0.03 0.00 - 0.20 K/mcL LAB HEMETOLOGY METHOD 01/30/2025 7:16 AM EDT [facility] Immature Granulocytes Absolute 0.01 0.00 - 0.03 K/mcL LAB HEMETOLOGY METHOD 01/30/2025 7:16 AM EDT [facility] Blood Venous blood specimen / Unknown Venipuncture / Unknown 01/30/2025 6:33 AM EDT 01/30/2025 6:56 AM EDT us Arti NETTLES LAB BLOOD ORDERABLES Final Result [facility] [address] [place] [address], * Phosphorus (01/30/2025 6:33 AM EDT) Only the most recent of2 resultswithin the time period is included. Phosphorus 3.7 2.5 - 4.5 mg/dL LAB CHEMISTRY METHOD 01/30/2025 7:48 AM [facility] Blood Venous blood specimen / Unknown Venipuncture / Unknown 01/30/2025 6:33 AM EDT 01/30/2025 6:56 AM EDT Arti NETTLES LAB BLOOD ORDERABLES Final Result [facility] [address] [place] [address], [place] [phone] * (ABNORMAL) Comprehensive metabolic panel (01/30/2025 6:33 AM EDT) Only the most recent of2 resultswithin the time period is included. [facility] Sodium 134 133 - 145 mmol/L LAB CHEMISTRY METHOD 01/30/2025 8:12 AM [facility] Potassium 4.5 3.5 - 5.5 mmol/L LAB CHEMISTRY METHOD 01/30/2025 8:12 AM [facility] Chloride 100 96 - 110 mmol/L LAB CHEMISTRY METHOD 01/30/2025 8:12 AM [facility] CO2 31 21 - 32 mmol/L LAB CHEMISTRY METHOD 01/30/2025 8:12 AM [facility] Anion Gap 3 3 - 11 LAB CHEMISTRY METHOD 01/30/2025 8:12 AM [facility] Glucose 468(HH) 70 - 100 mg/dL LAB CHEMISTRY METHOD 01/30/2025 8:12 AM [facility] BUN 5 5 - 25 mg/dL LAB CHEMISTRY METHOD 01/30/2025 8:12 AM [facility] Creatinine 0.96 0.70 - 1.30 mg/dL LAB CHEMISTRY METHOD 01/30/2025 8:12 AM [facility] eGFR 110 >=60 mL/min/1. 73m2 LAB CHEMISTRY METHOD 01/30/2025 8:12 AM [facility] Comment:Calculation based on the Chronic Kidney Disease Epidemiology Collaboration (CKD-EPI) equation refit without adjustment for race. BUN/Creatinine Ratio 5.2 LAB CHEMISTRY METHOD 01/30/2025 8:12 AM [facility] Calcium 9.0 8.5 - 10.5 mg/dL LAB CHEMISTRY METHOD 01/30/2025 8:12 AM [facility] AST (SGOT) 22 10 - 42 unit/L LAB CHEMISTRY METHOD 01/30/2025 8:12 AM [facility] ALT (SGPT) 30 10 - 60 unit/L LAB CHEMISTRY METHOD 01/30/2025 8:12 AM [facility] Alkaline Phosphatase 116 42 - 121 unit/L LAB CHEMISTRY METHOD 01/30/2025 8:12 AM [facility] Total Protein 6.3 6.0 - 8.0 g/dL LAB CHEMISTRY METHOD 01/30/2025 8:12 AM [facility] Albumin 3.6 3.2 - 5.0 g/dL LAB CHEMISTRY METHOD 01/30/2025 8:12 AM [facility] Total Bilirubin 0.2 0.0 - 1.4 mg/dL LAB CHEMISTRY METHOD 01/30/2025 8:12 AM [facility] Blood Venous blood specimen / Unknown Venipuncture / Unknown 01/30/2025 6:33 AM EDT 01/30/2025 6:56 AM EDT us Arti NETTLES LAB BLOOD ORDERABLES Final Result [facility] [address] [place] [address], * Lamotrigine level (01/27/2025 10:00 PM EDT) Pathologist [facility] [place] Lamotrigine (Lamictal) Level 2.4 2.0 - 15.0 ug/mL 01/30/2025 8:38 AM EDT [facility] Comment: Lamotrigine toxic level: >20 ug/mL The reference range is not well established. It may be as wide as 1 - 20 ug/mL. If applicable, any drug confirmation testing reported here was developed and the performance characteristics determined by [facility]. This confirmation testing has not been cleared or approved by the FDA. The laboratory is regulated under CLIA as qualified to perform high-complexity testing. This test is used for patient testing purposes. It should not be regarded as investigational or for research. Test performed at [facility], [address] , [place] [address] Olga Kingsley MD, PhD - Automation Machine Builder Blood Venous blood specimen / Unknown Venipuncture / Unknown 01/27/2025 10:00 PM EDT 01/27/2025 10:05 PM EDT us Vivek Torres MD LAB BLOOD ORDERABLES Final Result [facility] [address] [place] [address] * (ABNORMAL) Urinalysis with reflex microscopic (01/27/2025 7:46 PM EDT) [facility] [place] Urine 1.029 1.003 - 1.030 LAB URINALYSIS - AUTOMATED METHOD 01/27/2025 8:21 PM EDT [facility] pH, Urine 6.5 5.0 - 8.0 pH LAB URINALYSIS - AUTOMATED METHOD 01/27/2025 8:21 PM EDT [facility] Leukocytes, Urine Negative Negative LAB URINALYSIS - AUTOMATED METHOD 01/27/2025 8:21 PM EDT [facility] Nitrite, Urine Negative Negative LAB URINALYSIS - AUTOMATED METHOD 01/27/2025 8:21 PM EDT [facility] Protein, Urine Negative <=Trace mg/dL LAB URINALYSIS - AUTOMATED METHOD 01/27/2025 8:21 PM EDT [facility] Glucose, Urine >=1000(A) Negative mg/dL LAB URINALYSIS - AUTOMATED METHOD 01/27/2025 8:21 PM EDT [facility] Ketones, Urine Negative Negative mg/dL LAB URINALYSIS - AUTOMATED METHOD 01/27/2025 8:21 PM EDT [facility] Urobilinogen , Urine 0.2 0.2 - 1.0 mg/dL LAB URINALYSIS - AUTOMATED METHOD 01/27/2025 8:21 PM EDT [facility] Bilirubin, Urine Negative Negative LAB URINALYSIS - AUTOMATED METHOD 01/27/2025 8:21 PM [facility] Blood, Urine Negative Negative LAB URINALYSIS - AUTOMATED METHOD 01/27/2025 8:21 PM [facility] Urine Urine specimen obtained by clean catch procedure / Unknown Non-blood Collection / Unknown 01/27/2025 7:46 PM EDT 01/27/2025 8:01 PM EDT us Vish Walker DO LAB URINE ORDERABLES Final Result [facility] [address] [place] [address], * (ABNORMAL) Drug abuse screen 8a panel, urine (01/27/2025 7:46 PM EDT) Amphetamine Screen, Ur Negative Negative LAB CHEMISTRY METHOD 8:46 PM EDT [facility] Comment:Certain OTC medicati ons containing ephedrine, phenylephrine, pseudoephedrine and phenylpropanolamine can cause false positive results. Barbiturate Screen, Ur Negative Negative LAB CHEMISTRY METHOD 04/16/202 5 8:46 PM EDT [facility] Benzodiazepine Screen, Ur Negative Negative LAB CHEMISTRY METHOD 5 8:46 PM EDT [facility] Cocaine Screen, Ur Negative Negative LAB CHEMISTRY METHOD 5 8:46 PM EDT [facility] Opiate Screen, Ur Negative Negative LAB CHEMISTRY METHOD 5 8:46 PM EDT [facility] Cannabinoid (THC) Screen, Ur Negative Negative LAB CHEMISTRY METHOD 5 8:46 PM EDT [facility] Comment:Specimens from patie nts taking pantoprazole sodium (Protonix) have been shown to produce false positive results. Oxycodone Screen, Ur Positive(A ) Negative LAB CHEMISTRY METHOD 5 8:46 PM EDT [facility] Fentanyl, Ur Negative Negative LAB CHEMISTRY METHOD 5 8:46 PM EDT [facility] Urine Urine specimen obtained by clean catch procedure / Unknown Non-blood Collection / Unknown 01/27/2025 7:46 PM EDT 01/27/2025 8:01 PM EDT Narrative [facility] - 01/27/2025 8:46 PM EDT Assay cutoffs: Amphetamines 1000 ng/mL Barbiturates 200 ng/mL Benzodiazepines 200 ng/mL Cocaine 300 ng/mL Fentanyl 1 ng/mL Opiates 300 ng/mL Oxycodone 100 ng/mL THC 50 ng/mL Semi-quantitative assay for screening purposes only. Unconfirmed screening result should not be used for non-medical purposes. *ALTERNATE METHOD CONFIRMATION DONE UPON REQUEST ONLY* us Vish Walker DO LAB URINE ORDERABLES Final Result [facility] [address] [place] [address], * Buprenorphine screen, urine (01/27/2025 7:46 PM EDT) [facility] Buprenorphine Screen Urine Negative Negative LAB CHEMISTRY METHOD 01/27/2025 8:35 PM EDT [facility] Urine Urine specimen obtained by clean catch procedure / Unknown Non-blood Collection / Unknown 01/27/2025 7:46 PM EDT 01/27/2025 8:01 PM EDT Narrative [facility] - 01/27/2025 8:35 PM EDT Assay cutoff 5 ng/mL Semi-quantitative assay for screening purposes only. Unconfirmed screening result should not be used for non-medical purposes. *ALTERNATE METHOD CONFIRMATION DONE UPON REQUEST ONLY* Vish Walker DO LAB URINE ORDERABLES Final Result Performing Organization Address [facility] Co de Phone Number [facility] [address] [place] [address], [place] [phone] * Methadone, urine (01/27/2025 7:46 PM EDT) [facility] Methadone Screen, Urine Negative Negative LAB CHEMISTRY METHOD 01/27/2025 8:35 PM EDT [facility] Comment: Assay cutoff 300 ng/mL Semi-quantitative assay for screening purposes only. Unconfirmed screening result should not be used for non-medical purposes. *ALTERNATE METHOD CONFIRMATION DONE UPON REQUEST ONLY* Urine Urine specimen obtained by clean catch procedure / Unknown Non-blood Collection / Unknown 01/27/2025 7:46 PM EDT 01/27/2025 8:01 PM EDT Vish Walker DO LAB URINE ORDERABLES Final Result Performing Organization Address [facility]/ZIP Co de Phone Number [facility] [address] [place] [address], [place] [phone] * Phencyclidine, urine (01/27/2025 7:46 PM EDT) [facility] PCP Scrn, Ur Negative Negative LAB CHEMISTRY METHOD 01/27/2025 8:33 PM EDT [facility] Comment: Assay cutoff 25 ng/mL Semi-quantitative assay for screening purposes only. Unconfirmed screening result should not be used for non-medical purposes. *ALTERNATE METHOD CONFIRMATION DONE UPON REQUEST ONLY* Urine Urine specimen obtained by clean catch procedure / Unknown Non-blood Collection / Unknown 01/27/2025 7:46 PM EDT 01/27/2025 8:01 PM EDT us Vish Walker DO LAB URINE ORDERABLES Final Result Performing Organization Address [facility]/ZIP Co de Phone Number [facility] [address] [place] [address], [place] [phone] * Beta hydroxybutyrate (01/27/2025 4:45 PM EDT) Beta-Hydroxybu tyrate 1.3 0.2 - 2.8 mg/dL LAB CHEMISTRY METHOD 01/27/2025 5:44 PM EDT [facility] Blood Venous blood specimen / Unknown Venipuncture / Unknown 01/27/2025 4:45 PM EDT 01/27/2025 5:11 PM EDT us Vish Walker DO LAB BLOOD ORDERABLES Final Result Performing Organization Address [facility] Co de Phone Number [facility] [address] [place] [address], [place] [phone] * (ABNORMAL) Lipase (01/27/2025 4:45 PM EDT) Lipase <10(L) 13 - 75 unit/L LAB CHEMISTRY METHOD 01/27/2025 5:45 PM EDT [facility] Blood Venous blood specimen / Unknown Venipuncture / Unknown 01/27/2025 4:45 PM EDT 01/27/2025 5:11 PM EDT us Vish Walker DO LAB BLOOD ORDERABLES Final Result Performing Organization Address City/[facility] Co de Phone Number [facility] [address] [place] [address], [place] [phone] * Ethanol (01/27/2025 4:45 PM EDT) Pathologist [facility] [place] Ethanol Level <3 0 - 10 mg/dL LAB CHEMISTRY METHOD 01/27/2025 5:39 PM EDT [facility] Blood Venous blood specimen / Unknown Venipuncture / Unknown 01/27/2025 4:45 PM EDT 01/27/2025 5:11 PM EDT Vish Walker DO LAB BLOOD ORDERABLES Final Result Performing Organization Address [facility] de Phone Number [facility] [address] [place] [address], [place] [phone] * (ABNORMAL) Valproic acid level, total (01/27/2025 4:45 PM EDT) [facility] Valproic Acid, Total 15(L) 50 - 100 mcg/mL LAB CHEMISTRY METHOD 01/27/2025 5:44 PM EDT [facility] Blood Venous blood specimen / Unknown Venipuncture / Unknown 01/27/2025 4:45 PM EDT 01/27/2025 5:11 PM EDT Vivek Torres MD LAB BLOOD ORDERABLES Final Result Performing Organization Address [facility] Co de Phone Number [facility] [address] [place] [address], [place] [phone] * ECG 12 lead (01/27/2025 3:56 PM EDT) Ventricular Rate ECG 79 BPM GEMUSE Atrial Rate 79 BPM GEMUSE P-R Interval 142 ms GEMUSE QRS Duration 80 ms GEMUSE Q-T Interval 334 ms GEMUSE QTc 382 ms GEMUSE P Wave [place] 43 degrees GEMUSE R [place] 67 degrees GEMUSE T [place] 45 degrees GEMUSE ECG Interpretation Normal sinus rhythm Early repolarization When compared with ECG of 12-OCT-2024 15:25, No significant change was found Confirmed by JULIEN CLARKE ([id number]) on 01/27/2025 5:49:40 PM GEMUSE 01/27/2025 3:56 PM EDT 01/27/2025 5:49 PM EDT Vish Walker DO ECG ORDERABLES Final Resul t Performing Organization Address City/[facility]/ZIP Co de Phone Number GEM[facility] * (ABNORMAL) Osmolality (01/27/2025 3:45 PM EDT) [facility] Osmolality Dariana 311(H) 280 - 300 mOsm/kg LAB CHEMISTRY METHOD 01/27/2025 4:36 PM EDT [facility] Blood Venous blood specimen / Unknown Venipuncture / Unknown 01/27/2025 3:45 PM EDT 01/27/2025 3:57 PM EDT us Vish Walker DO LAB BLOOD ORDERABLES Final Result Performing Organization Address [facility] de Phone Number [facility] [address] [place] [address], [place] [phone] * (ABNORMAL) Venous blood gas (01/27/2025 3:45 PM EDT) pH, Jose A 7.40 7.32 - 7.42 pH 01/27/2025 3:58 PM EDT [facility] pCO2, Jose A 47 41 - 51 mmHg 01/27/2025 3:58 PM EDT [facility] pO2, Jose A 64(H) 25 - 40 mmHg 01/27/2025 3:58 PM EDT [facility] HCO3, Venous 27.5(H) 22.0 - 26.0 mmol/L 01/27/2025 3:58 PM EDT [facility] O2 Sat, Jose A 93.8 % 01/27/2025 3:58 PM EDT [facility] Base Excess, Jose A 3.5(H) -2.0 - 2.0 mmol/L 01/27/2025 3:58 PM EDT [facility] Blood Venous blood specimen / Unknown Venipuncture / Unknown 01/27/2025 3:45 PM EDT 01/27/2025 3:56 PM EDT Result [facility] Vish Walker DO LAB BLOOD ORDERABLES Final Result [facility] [address] [place] [address], [place] [phone] * Diabetes Foot Exam (02/10/2024) Pathologist [facility] Diabetes: Annual Foot Exam Abstracted Result [facility] Historical Provider MD HEALTH MAINTENANCE Final Result * Urine Albumin Creatinine Ratio (01/31/2024) [facility] Urine Albumin Creatinine Ratio Abstracted Result [facility] Provider HEALTH MAINTENANCE Final Result * (ABNORMAL) Hemoglobin A1c (01/31/2024) [facility] Hemoglobin A1C 11.4(A) <=6.5 % Blood Venous blood specimen / Unknown Result [facility] Historical Provider MD LAB BLOOD ORDERABLES Laura l Result * Lipid panel (01/31/2024) [facility] LDL/HDL Ratio 2 Triglycerides 86 mg/dL Cholesterol 128 mg/dL HDL 53 mg/dL LDL Cholesterol 58 mg/dL Blood Venous blood specimen / Unknown Result [facility] Historical Provider LAB BLOOD ORDERABLES Laura l Result * Hepatitis C Screening (01/23/2023) [facility] Hepatitis C Screening Abstracted Historical Provider HEALTH MAINTENANCE Final Result * HIV Screening (08/01/2018) [facility] HIV Screening Abstracted Historical Provider HEALTH MAINTENANCE Final Result from Last 3 Months or Most Recently Relevant to Health Maintenance Insurance [facility] [facility] Advance Directives Documents on File Type Date Recorded Patient Key Cutter Expl anation Health Care Decision (hx) 08/17/2021 AD BRIGGS DIRECTIVE Health Care Decision (hx) 08/17/2021 AD BRIGGS DIRECTIVE Health Care Decision (hx) 08/17/2021 AD BRIGGS DIRECTIVE Health Care Decision (hx) 08/17/2021 AD BRIGGS DIRECTIVE Health Care Decision (hx) 08/17/2021 AD BRIGGS DIRECTIVE Health Care Decision (hx) 08/17/2021 AD BRIGGS DIRECTIVE Health Care Decision (hx) 08/17/2021 AD BRIGGS DIRECTIVE Health Care Decision (hx) 08/17/2021 AD BRIGGS DIRECTIVE Health Care Decision (hx) 08/17/2021 AD BRIGGS DIRECTIVE Health Care Decision (hx) 08/17/2021 AD BRIGGS DIRECTIVE Health Care Decision (hx) 08/17/2021 AD BRIGGS DIRECTIVE Health Care Decision (hx) 08/17/2021 AD BRIGGS DIRECTIVE Health Care Decision (hx) 08/17/2021 AD BRIGGS DIRECTIVE Health Care Decision (hx) 08/17/2021 AD BRIGGS DIRECTIVE Health Care Decision (hx) 08/17/2021 AD BRIGGS DIRECTIVE Health Care Decision (hx) 08/17/2021 AD BRIGGS DIRECTIVE Health Care Decision (hx) 08/17/2021 AD BRIGGS DIRECTIVE Health Care Decision (hx) 08/17/2021 AD BRIGGS DIRECTIVE Health Care Decision (hx) 08/17/2021 AD BRIGGS DIRECTIVE * Full Code - Default (Latest Code Status on File) Date Activated Date Inactivated Comments 01/27/2025 7:52 PM 01/31/2025 2:38 PM This is orde r is used when code status has not been discussed with the patient, or code status is otherwise unknown/unconfirmed To update the patient's code status, place a code status order. Do not modify or discontinue any currently active code status orders. Care Teams Bobcat Driver/Labor Relationship Specialty Start Date End Date Tuyet Carter MD [address] [place] [id number] PCP - General 06/04/23
--- OUTSIDE RECORDS SUMMARY | 2025-04-28 14:08 | XMS_ITS | Clinical Summary ---
Author Organization [facility] Address [address] [place] [address] Care Team Providers Care Truck Assembler Name Role Phone Unavailable Primary Care Provider Unavailabl e Medications Medication Sig Dispensed Refills Start Date End Date Status polyethylene glycol (MIRALAX) 17 g packet Take 17 g by mouth daily. 14 each 0 10/04/2023 Active acetaminophen (TYLENOL) 325 MG tablet Take 3 tablets (975 mg total) by mouth every 8 (eight) hours as needed. 120 tablet 0 10/03/2023 Active folic acid (FOLVITE) tablet 1 mg Take 1 tablet (1 mg total) by mouth daily. 30 tablet 0 10/04/2023 Active nicotine polacrilex (NICORETTE) 2 MG gum Use as directed 1 each (2 mg total) in the mouth or throat every hour as needed for smoking cessation. 100 each 0 10/03/2023 Active venlafaxine (EFFEXOR-XR) 75 MG 24 hr capsule Take 1 capsule (75 mg total) by mouth every morning with breakfast. 7 capsule 0 10/04/2023 Active vitamin B-1 (THIAMINE) 100 MG tablet Take 1 tablet (100 mg total) by mouth daily. 30 tablet 0 10/04/2023 Active Multiple Vitamins-Minerals (Thera M Plus) TABS tablet Take 1 tablet by mouth daily. 30 tablet 0 10/04/2023 Active levETIRAcetam (KEPPRA) 500 MG tablet Take 1 tablet (500 mg total) by mouth 2 (two) times a day. 60 tablet 0 10/03/2023 Active Lacosamide (VIMPAT) 100 MG TABS tablet Take 1 tablet (100 mg total) by mouth 2 (two) times a day. 60 tablet 0 10/03/2023 Active divalproex (DEPAKOTE) [address] tablet Take 1 tablet (500 mg total) by mouth 3 (three) times a day. 60 tablet 0 10/03/2023 Active insulin glargine (LANTUS) injection 100 units/mL Inject 30 Units under the skin every night at bedtime. 0 Active pancrelipase, Gsg-Jfmn-Vbmk, (ZENPEP) [address]-[address] capsule Take 1 capsule (10,000 units of lipase total) by mouth 3 (three) times a day with meals. 270 capsule 0 10/03/2023 Active Active Problems Problem Noted Date Diagnosed Date Seizure 09/25/2023 Social History Tobacco Use Types Packs/Day Years Used Date Smoking Tobacco: Unknown Sex and Gender Information Value Date Recorded Sex Assigned at Male 09/25/2023 2:07 PM EST Gender Identity Not on file Sexual Orientation Not on file Job Start Date Occupation Industry Not on file Not on file Not on file Last Filed Vital Signs Vital Sign Reading Time Taken Comments Blood Pressure 118/78 10/03/2023 12:34 PM EST Pulse 123 10/03/2023 12:34 PM EST Temperature 37 C (98.6 F) 10/03/2023 12:34 PM EST Respiratory Rate 18 10/03/2023 12:3 4 PM EST Oxygen Saturation 98% 10/03/2023 12: 34 PM EST Inhaled Oxygen Concentration - - Weight 59.3 kg (130 lb 11.7 oz) 023 12:10 AM EST Height 177.8 cm (5' 10 ) 09/25/2023 6:00 AM EST Body Mass Index 18.76 09/25/2023 6:00 AM EST Plan of Treatment Health Maintenance Due Date Last Done Comments Hepatitis C Screening 1995 COVID-19 Vaccine (#1) 1995 Depression Screening 2007 Diabetes: Eye Exam (No Retinopathy) 2013 Diabetes: Foot Exam 2013 Diabetes: Microalbumin Test 2013 Preventative Health Evaluation 2013 Hemoglobin A1C Due 03/26/2024 09/25/2023 Influenza Vaccine (#1) 2025 , 07/21/2020, 10/08/2019, Additional history exists DTap / Tdap / Td (8 - Td or Tdap) 02/25/2027 02/25/2017, 04/17/2006, 05/16/1999, Additional history exists Hepatitis B Vaccines Completed 05/16/1999, 01/28/1996, 1995, Additional history exists Pneumococcal Vaccine Aged Out 05/04/2014 No long er eligible based on patient's age to complete this topic RSV Ped < 20 months Aged Out No longe r eligible based on patient's age to complete this topic Advance Directives For more information, please contact: [phone] Latest Code Status on File Code Status Date Activated Date Inactivated Comments Full Code 10/03/2023 11:03 AM Code Status History Code Status Date Activated Date Inactivated Comments Full Code 09/25/2023 6:15 AM 10/03/2023 11:03 AM Th is code status was ascertained in the following way: presumed .
--- OUTSIDE RECORDS SUMMARY | 2025-04-28 14:08 | XMS_ITS ---
Author Name [facility] Organization Unknown Results Test Name/Text Value Interpretation Date Range Source GLUCOSE BLDC GLUCOMTR [facility] 127.0 mg/dL Normal 10/03/2023 70 - 199 [facility] MAGNESIUM SERPL [facility] 1.6 mg/dL Below low normal 10/03/2023 1 .7 - 2.8 [facility] PHOSPHATE SERPL [facility] 3.0 mg/dL Normal 10/03/2023 2.5 - 4. 5 [facility] GLUCOSE SERPL [facility] 357.0 mg/dL Above high normal 10/03/2023 70 - 199 [facility] SODIUM SERPL [facility] 133.0 mmol/L Below low normal 10/03/2023 1 35 - 145 [facility] POTASSIUM SERPL [facility] 4.2 mmol/L Normal 10/03/2023 3.5 - 5 .1 [facility] HCO3 SER [facility] 27.0 mmol/L Normal 10/03/2023 24 - 32 [facility] BUN SERPL [facility] 12.0 mg/dL Normal 10/03/2023 9 - 20 [facility] CALCIUM SERPL [facility] 8.4 mg/dL Normal 10/03/2023 8.4 - 10.2 [facility] ANION GAP SERPL [facility] 9.0 mmol/L Normal 10/03/2023 5 - 14 [facility] CHLORIDE SERPL [facility] 97.0 mmol/L Below low normal 10/03/2023 98 - 107 [facility] CREAT SERPL [facility] 0.7 mg/dL Normal 10/03/2023 0.7 - 1.3 [facility] GLUCOSE BLDC GLUCOMTR [facility] 358.0 mg/dL Above high normal 10/03/2023 70 - 199 [facility] GLUCOSE BLDC GLUCOMTR MC[facility] 146.0 mg/dL Normal 10/03/2023 70 - 199 [facility] GLUCOSE BLDC GLUCOMTR [facility] 131.0 mg/dL Normal 10/03/2023 70 - 199 [facility] GLUCOSE BLDC GLUCOMTR [facility] 351.0 mg/dL Above high normal 10/02/2023 70 - 199 [facility] GLUCOSE BLDC GLUCOMTR MC[facility] 397.0 mg/dL Above high normal 10/02/2023 70 - 199 [facility] TSH SerPl DL<=0.005 mIU/L-aCnc 0.99 uIU/mL Normal 10/02/2023 0.45 - 5.33 [facility] HGB BLD [facility] 14.0 g/dL Normal 10/02/2023 13.5 - 18 [facility] RDW RBC AUTO RTO 12.2 % Normal 10/02/2023 12.1 - 17.7 [facility] RBC NO. BLD AUTO 4.45 M/uL Below low normal 10/02/2023 4.7 - 6 [facility] MCH RBC QN AUTO 31.5 pg Normal 10/02/2023 25 - 33 [facility] PMV BLD AUTO 8.5 fL Normal 10/02/2023 7.4 - 11.4 [facility] MCV RBC AUTO 91.0 fL Normal 10/02/2023 78 - 100 [facility] HCT VFR BLD AUTO 40.5 % Normal 10/02/2023 40 - 54 [facility] MCHC RBC AUTO MCNC 34.6 g/dL Normal 10/02/2023 32 - 36 [facility] PLATELET NO. BLD AUTO 199.0 K/uL Normal 10/02/2023 150 - 450 [facility] WBC NO. BLD AUTO 7.7 K/uL Normal 10/02/2023 4 - 10.5 [facility] AMMONIA PLAS SCNC 30.0 mcmol/L Normal 10/02/2023 15 - 45 [facility] VALPROATE SERPL-MCNC 89.9 mcg/mL Normal 10/02/2023 50 - 1 00 [facility] VIT B12 SER [facility] 2010.0 pg/mL Above high normal 10/02/2023 1 80 - 914 [facility] FOLATE SERPL [facility] 18.6 ng/mL Normal 10/02/2023 3 - [facility] CREAT SERPL [facility] 0.7 mg/dL Normal 10/02/2023 0.7 - 1.3 [facility] ANION GAP SERPL SCNC 10.0 mmol/L Normal 10/02/2023 5 - 14 [facility] HCO3 SER SCNC 28.0 mmol/L Normal 10/02/2023 24 - 32 [facility] POTASSIUM SERPL SCNC 4.4 mmol/L Normal 10/02/2023 3.5 - 5 .1 [facility] CALCIUM SERPL MCNC 9.7 mg/dL Normal 10/02/2023 8.4 - 10.2 [facility] CHLORIDE SERPL SCNC 99.0 mmol/L Normal 10/02/2023 98 - 10 7 [facility] GLUCOSE SERPL MCNC 325.0 mg/dL Above high normal 10/02/2023 70 - 199 [facility] SODIUM SERPL SCNC 137.0 mmol/L Normal 10/02/2023 135 - 14 5 [facility] BUN SERPL MC[facility] 10.0 mg/dL Normal 10/02/2023 9 - 20 [facility] MAGNESIUM SERPL MCNC 1.8 mg/dL Normal 10/02/2023 1.7 - 2. 8 [facility] GLUCOSE BLDC GLUCOMTR MC[facility] 261.0 mg/dL Above high normal 10/01/2023 70 - 199 [facility] GLUCOSE BLDC GLUCOMTR MCNC 299.0 mg/dL Above high normal 10/01/2023 70 - 199 [facility] GLUCOSE BLDC GLUCOMTR MC[facility] 188.0 mg/dL Normal 10/01/2023 70 - 199 [facility] CALCIUM SERPL MCNC 9.1 mg/dL Normal 10/01/2023 8.4 - 10.2 [facility] CHLORIDE SERPL SCNC 104.0 mmol/L Normal 10/01/2023 98 - 1 07 [facility] SODIUM SERPL SCNC 143.0 mmol/L Normal 10/01/2023 135 - 14 5 [facility] ANION GAP SERPL SCNC 10.0 mmol/L Normal 10/01/2023 5 - 14 [facility] BUN SERPL MC[facility] 7.0 mg/dL Below low normal 10/01/2023 9 - 20 [facility] HCO3 SER SCNC 29.0 mmol/L Normal 10/01/2023 24 - 32 [facility] GLUCOSE SERPL MCNC 136.0 mg/dL Normal 10/01/2023 70 - 199 [facility] POTASSIUM SERPL SCNC 3.8 mmol/L Normal 10/01/2023 3.5 - 5 .1 [facility] CREAT SERPL MCNC 0.6 mg/dL Below low normal 10/01/2023 0.7 - 1.3 [facility] HCT VFR BLD AUTO 38.0 % Below low normal 10/01/2023 40 - 54 [facility] MCHC RBC AUTO MCNC 34.2 g/dL Normal 10/01/2023 32 - 36 [facility] RBC NO. BLD AUTO 4.2 M/uL Below low normal 10/01/2023 4.7 - 6 [facility] HGB BLD [facility] 13.0 g/dL Below low normal 10/01/2023 13.5 - 18 [facility] WBC NO. BLD AUTO 5.0 K/uL Normal 10/01/2023 4 - 10.5 [facility] PMV BLD AUTO 8.2 fL Normal 10/01/2023 7.4 - 11.4 [facility] PLATELET NO. BLD AUTO 185.0 K/uL Normal 10/01/2023 150 - 450 [facility] MCV RBC AUTO 90.4 fL Normal 10/01/2023 78 - 100 [facility] RDW RBC AUTO RTO 12.3 % Normal 10/01/2023 12.1 - 17.7 [facility] MCH RBC QN AUTO 30.9 pg Normal 10/01/2023 25 - 33 [facility] MAGNESIUM SERPL MCNC 1.7 mg/dL Normal 10/01/2023 1.7 - 2. 8 [facility] GLUCOSE BLDC GLUCOMTR MC[facility] 99.0 mg/dL Normal 10/01/2023 70 - 199 [facility] GLUCOSE BLDC GLUCOMTR MCNC 194.0 mg/dL Normal 10/01/2023 70 - 199 [facility] GLUCOSE BLDC GLUCOMTR MC[facility] 169.0 mg/dL Normal 10/01/2023 70 - 199 [facility] GLUCOSE BLDC GLUCOMTR MCNC 119.0 mg/dL Normal 09/30/2023 70 - 199 [facility] GLUCOSE BLDC GLUCOMTR MCNC 109.0 mg/dL Normal 09/30/2023 70 - 199 [facility] GLUCOSE BLDC GLUCOMTR MCNC 103.0 mg/dL Normal 09/30/2023 70 - 199 [facility] MAGNESIUM SERPL [facility] 1.8 mg/dL Normal 09/30/2023 1.7 - 2. 8 [facility] PHOSPHATE SERPL [facility] 3.3 mg/dL Normal 09/30/2023 2.5 - 4. 5 [facility] SODIUM SERPL SCNC 144.0 mmol/L Normal 09/30/2023 135 - 14 5 [facility] GLUCOSE SERPL [facility]NC 117.0 mg/dL Normal 09/30/2023 70 - 199 [facility] POTASSIUM SERPL SCNC 4.0 mmol/L Normal 09/30/2023 3.5 - 5 .1 [facility] CHLORIDE SERPL SCNC 108.0 mmol/L Above high normal 98 - 107 [facility] CALCIUM SERPL [facility] 8.7 mg/dL Normal 09/30/2023 8.4 - 10.2 [facility] BUN SERPL [facility] 10.0 mg/dL Normal 09/30/2023 9 - 20 [facility] HCO3 SER [facility] 27.0 mmol/L Normal 09/30/2023 24 - 32 [facility] ANION GAP SERPL [facility] 9.0 mmol/L Normal 09/30/2023 5 - 14 [facility] CREAT SERPL [facility] 0.6 mg/dL Below low normal 09/30/2023 0.7 - 1.3 [facility] RDW RBC AUTO RTO 12.5 % Normal 09/30/2023 12.1 - 17.7 [facility] MCH RBC QN AUTO 31.5 pg Normal 09/30/2023 25 - 33 [facility] MCV RBC AUTO 90.8 fL Normal 09/30/2023 78 - 100 [facility] DIFFERENTIAL TYPE AUTOMATED Normal 09/30/2023 C [facility] HCT VFR BLD AUTO 35.8 % Below low normal 09/30/2023 40 - 54 [facility] BASOPHILS NFR BLD AUTO 0.4 % Normal 09/30/2023 0 - 2 [facility] EOSINOPHIL NFR BLD AUTO 3.4 % Normal 09/30/2023 0 - 6 [facility] MCHC RBC AUTO MCNC 34.7 g/dL Normal 09/30/2023 32 - 36 [facility] WBC NO. BLD AUTO 4.9 K/uL Normal 09/30/2023 4 - 10.5 [facility] RBC NO. BLD AUTO 3.95 M/uL Below low normal 09/30/2023 4.7 - 6 [facility] PMV BLD AUTO 7.9 fL Normal 09/30/2023 7.4 - 11.4 [facility] NEUTROPHILS NO. BLD AUTO 2.2 K/uL Normal 09/30/2023 1.8 - 7.8 [facility] BASOPHILS IN BLOOD BY AUTOMATED COUNT 0.0 K/uL Normal 09/30/2023 0 - 0.2 [facility] LYMPHOCYTES NO. BLD AUTO 2.2 K/uL Normal 09/30/2023 1 - 3.2 [facility] LYMPHOCYTES NFR BLD AUTO 45.1 % Normal 09/30/2023 20 - 48 [facility] HGB BLD [facility] 12.4 g/dL Below low normal 09/30/2023 13.5 - 18 [facility] NEUTROPHILS NFR BLD AUTO 45.4 % Normal 09/30/2023 44 - 74 [facility] EOSINOPHIL NO. BLD AUTO 0.2 K/uL Normal 09/30/2023 0 - 0.5 [facility] MONOCYTES NFR BLD AUTO 5.7 % Normal 09/30/2023 2 - 12 [facility] MONOCYTES NO. BLD AUTO 0.3 K/uL Normal 09/30/2023 0 - 0.8 [facility] PLATELET NO. BLD AUTO 177.0 K/uL Normal 09/30/2023 150 - 450 [facility] GLUCOSE BLDC GLUCOMTR [facility] 86.0 mg/dL Normal 09/30/2023 70 - 199 [facility] GLUCOSE BLDC GLUCOMTR MC[facility] 130.0 mg/dL Normal 09/29/2023 70 - 199 [facility] GLUCOSE BLDC GLUCOMTR MCNC 184.0 mg/dL Normal 09/29/2023 70 - 199 [facility] GLUCOSE BLDC GLUCOMTR MCNC 200.0 mg/dL Above high normal 09/29/2023 70 - 199 [facility] GLUCOSE BLDC GLUCOMTR MCNC 157.0 mg/dL Normal 09/29/2023 70 - 199 [facility] MAGNESIUM SERPL [facility]NC 1.8 mg/dL Normal 09/29/2023 1.7 - 2. 8 [facility] PHOSPHATE SERPL [facility] 2.7 mg/dL Normal 09/29/2023 2.5 - 4. 5 [facility] RDW RBC AUTO RTO 12.4 % Normal 09/29/2023 12.1 - 17.7 [facility] HCT VFR BLD AUTO 35.9 % Below low normal 09/29/2023 40 - 54 [facility] PLATELET NO. BLD AUTO 164.0 K/uL Normal 09/29/2023 150 - 450 [facility] MCH RBC QN AUTO 31.5 pg Normal 09/29/2023 25 - 33 [facility] HGB BLD [facility] 12.6 g/dL Below low normal 09/29/2023 13.5 - 18 [facility] MCV RBC AUTO 89.7 fL Normal 09/29/2023 78 - 100 [facility] MCHC RBC AUTO MCNC 35.1 g/dL Normal 09/29/2023 32 - 36 [facility] PMV BLD AUTO 8.4 fL Normal 09/29/2023 7.4 - 11.4 [facility] RBC NO. BLD AUTO 4.01 M/uL Below low normal 09/29/2023 4.7 - 6 [facility] WBC NO. BLD AUTO 5.6 K/uL Normal 09/29/2023 4 - 10.5 [facility] CALCIUM SERPL [facility] 8.4 mg/dL Normal 09/29/2023 8.4 - 10.2 [facility] CHLORIDE SERPL SCNC 103.0 mmol/L Normal 09/29/2023 98 - 1 07 [facility] CREAT SERPL [facility]NC 0.8 mg/dL Normal 09/29/2023 0.7 - 1.3 [facility] SODIUM SERPL SCNC 138.0 mmol/L Normal 09/29/2023 135 - 14 5 [facility] GLUCOSE SERPL MCNC 245.0 mg/dL Above high normal 09/29/2023 70 - 199 [facility] POTASSIUM SERPL SCNC 3.6 mmol/L Normal 09/29/2023 3.5 - 5 .1 [facility] BUN SERPL [facility] 6.0 mg/dL Below low normal 09/29/2023 9 - 20 [facility] ANION GAP SERPL SCNC 6.0 mmol/L Normal 09/29/2023 5 - 14 [facility] HCO3 SER SCNC 29.0 mmol/L Normal 09/29/2023 24 - 32 [facility] GLUCOSE BLDC GLUCOMTR [facility] 266.0 mg/dL Above high normal 09/29/2023 70 - 199 [facility] GLUCOSE BLDC GLUCOMTR MCNC 291.0 mg/dL Above high normal 09/29/2023 70 - 199 [facility] CHLORIDE UR SCNC 135.0 mmol/L Normal 09/28/2023 [facility] GLUCOSE BLDC GLUCOMTR MCNC 262.0 mg/dL Above high normal 09/28/2023 70 - 199 [facility] GLUCOSE BLDC GLUCOMTR [facility] 138.0 mg/dL Normal 09/28/2023 70 - 199 [facility] PO2 BLDA 153.0 mmHg Above high normal 09/28/2023 80 - 105 [facility] SAO2% BLDA 99.0 % Above high normal 09/28/2023 95 - 98 [facility] BASE EXCESS BLDA SCNC 4.2 mmol/L Above high normal 3 0 - 2 [facility] HCO3 BLDA SCNC 28.3 mmol/L Above high normal 09/28/2023 22 - 26 [facility] PCO2 BLDA 40.0 mmHg Normal 09/28/2023 35 - 45 [facility] PH BLDA 7.46 Above high normal 09/28/2023 7.35 - 7.45 [facility] SPECIMEN TYPE ARTERIAL Normal 09/28/2023 [facility] GLUCOSE BLDC GLUCOMTR MCNC 72.0 mg/dL Normal 09/28/2023 70 - 199 [facility] GLUCOSE BLDC GLUCOMTR MCNC 149.0 mg/dL Normal 09/28/2023 70 - 199 [facility] PHOSPHATE SERPL MCNC 3.0 mg/dL Normal 09/28/2023 2.5 - 4. 5 [facility] MCH RBC QN AUTO 30.8 pg Normal 09/28/2023 25 - 33 [facility] RBC NO. BLD AUTO 4.07 M/uL Below low normal 09/28/2023 4.7 - 6 [facility] MCV RBC AUTO 89.7 fL Normal 09/28/2023 78 - 100 [facility] HCT VFR BLD AUTO 36.5 % Below low normal 09/28/2023 40 - 54 [facility] PLATELET NO. BLD AUTO 163.0 K/uL Normal 09/28/2023 150 - 450 [facility] RDW RBC AUTO RTO 12.6 % Normal 09/28/2023 12.1 - 17.7 [facility] WBC NO. BLD AUTO 6.7 K/uL Normal 09/28/2023 4 - 10.5 [facility] MCHC RBC AUTO MCNC 34.3 g/dL Normal 09/28/2023 32 - 36 [facility] PMV BLD AUTO 8.2 fL Normal 09/28/2023 7.4 - 11.4 [facility] HGB BLD [facility] 12.5 g/dL Below low normal 09/28/2023 13.5 - 18 [facility] MAGNESIUM SERPL MCNC 1.7 mg/dL Normal 09/28/2023 1.7 - 2. 8 [facility] GLUCOSE SERPL MCNC 136.0 mg/dL Normal 09/28/2023 70 - 199 [facility] BUN SERPL MCNC 9.0 mg/dL Normal 09/28/2023 9 - 20 [facility] HCO3 SER SCNC 32.0 mmol/L Normal 09/28/2023 24 - 32 [facility] CHLORIDE SERPL SCNC 103.0 mmol/L Normal 09/28/2023 98 - 1 07 [facility] ANION GAP SERPL SCNC 6.0 mmol/L Normal 09/28/2023 5 - 14 [facility] CREAT SERPL MCNC 0.7 mg/dL Normal 09/28/2023 0.7 - 1.3 [facility] CALCIUM SERPL [facility]NC 8.3 mg/dL Below low normal 09/28/2023 8.4 - 10.2 [facility] SODIUM SERPL SCNC 141.0 mmol/L Normal 09/28/2023 135 - 14 5 [facility] POTASSIUM SERPL SCNC 3.4 mmol/L Below low normal 09/28/2023 3.5 - 5.1 [facility] GLUCOSE BLDC GLUCOMTR MCNC 146.0 mg/dL Normal 09/28/2023 70 - 199 [facility] GLUCOSE BLDC GLUCOMTR MCNC 154.0 mg/dL Normal 09/28/2023 70 - 199 [facility] GLUCOSE BLDC GLUCOMTR MCNC 198.0 mg/dL Normal 09/28/2023 70 - 199 [facility] GLUCOSE BLDC GLUCOMTR MCNC 144.0 mg/dL Normal 09/27/2023 70 - 199 [facility] GLUCOSE BLDC GLUCOMTR MCNC 166.0 mg/dL Normal 09/27/2023 70 - 199 [facility] GLUCOSE BLDC GLUCOMTR MCNC 214.0 mg/dL Above high normal 09/27/2023 70 - 199 [facility] SODIUM SERPL SCNC 143.0 mmol/L Normal 09/27/2023 135 - 14 5 [facility] POTASSIUM SERPL SCNC 3.7 mmol/L Normal 09/27/2023 3.5 - 5 .1 [facility] CHLORIDE SERPL SCNC 109.0 mmol/L Above high normal 3 98 - 107 [facility] CALCIUM SERPL MCNC 8.5 mg/dL Normal 09/27/2023 8.4 - 10.2 [facility] ANION GAP SERPL SCNC 4.0 mmol/L Below low normal 09/27/2023 5 - 14 [facility] GLUCOSE SERPL MCNC 204.0 mg/dL Above high normal 09/27/2023 70 - 199 [facility] HCO3 SER SCNC 30.0 mmol/L Normal 09/27/2023 24 - 32 [facility] BUN SERPL [facility] 19.0 mg/dL Normal 09/27/2023 9 - 20 [facility] CREAT SERPL [facility]NC 0.9 mg/dL Normal 09/27/2023 0.7 - 1.3 [facility] Glomerular filtration rate/1.73 sq M. predicted 119.0 Normal 09/27/2023 60 - [facility] GLUCOSE BLDC GLUCOMTR MCNC 226.0 mg/dL Above high normal 09/27/2023 70 - 199 [facility] GLUCOSE BLDC GLUCOMTR MCNC 209.0 mg/dL Above high normal 09/27/2023 70 - 199 [facility] GLUCOSE BLDC GLUCOMTR MCNC 166.0 mg/dL Normal 09/27/2023 70 - 199 [facility] GLUCOSE BLDC GLUCOMTR MCNC 182.0 mg/dL Normal 09/27/2023 70 - 199 [facility] GLUCOSE BLDC GLUCOMTR MCNC 172.0 mg/dL Normal 09/27/2023 70 - 199 [facility] GLUCOSE BLDC GLUCOMTR MCNC 147.0 mg/dL Normal 09/27/2023 70 - 199 [facility] GLUCOSE BLDC GLUCOMTR MCNC 118.0 mg/dL Normal 09/27/2023 70 - 199 [facility] MCH RBC QN AUTO 30.8 pg Normal 09/27/2023 25 - 33 [facility] MCV RBC AUTO 91.9 fL Normal 09/27/2023 78 - 100 [facility] MCHC RBC AUTO MCNC 33.5 g/dL Normal 09/27/2023 32 - 36 [facility] PLATELET NO. BLD AUTO 184.0 K/uL Normal 09/27/2023 150 - 450 [facility] RDW RBC AUTO RTO 13.0 % Normal 09/27/2023 12.1 - 17.7 [facility] PMV BLD AUTO 8.3 fL Normal 09/27/2023 7.4 - 11.4 [facility] HCT VFR BLD AUTO 37.3 % Below low normal 09/27/2023 40 - 54 [facility] WBC NO. BLD AUTO 7.3 K/uL Normal 09/27/2023 4 - 10.5 [facility] RBC NO. BLD AUTO 4.06 M/uL Below low normal 09/27/2023 4.7 - 6 [facility] HGB BLD MCNC 12.5 g/dL Below low normal 09/27/2023 13.5 - 18 [facility] MAGNESIUM SERPL MCNC 2.0 mg/dL Normal 09/27/2023 1.7 - 2. 8 [facility] POTASSIUM SERPL SCNC 3.9 mmol/L Normal 09/27/2023 3.5 - 5 .1 [facility] BUN SERPL MCNC 23.0 mg/dL Above high normal 09/27/2023 9 - 2 0 [facility] CREAT SERPL MCNC 0.7 mg/dL Normal 09/27/2023 0.7 - 1.3 [facility] GLUCOSE SERPL MCNC 95.0 mg/dL Normal 09/27/2023 70 - 199 [facility] CHLORIDE SERPL SCNC 112.0 mmol/L Above high normal 98 - 107 [facility] HCO3 SER SCNC 31.0 mmol/L Normal 09/27/2023 24 - 32 [facility] CALCIUM SERPL MCNC 8.3 mg/dL Below low normal 09/27/2023 8.4 - 10.2 [facility] ANION GAP SERPL SCNC 7.0 mmol/L Normal 09/27/2023 5 - 14 [facility] SODIUM SERPL SCNC 150.0 mmol/L Above high normal 09/27/2023 135 - 145 [facility] PHOSPHATE SERPL MCNC 3.8 mg/dL Normal 09/27/2023 2.5 - 4. 5 [facility] GLUCOSE BLDC GLUCOMTR MCNC 100.0 mg/dL Normal 09/27/2023 70 - 199 [facility] GLUCOSE BLDC GLUCOMTR MCNC 129.0 mg/dL Normal 09/27/2023 70 - 199 [facility] GLUCOSE BLDC GLUCOMTR MCNC 64.0 mg/dL Below low normal 09/27/2023 70 - 199 [facility] GLUCOSE BLDC GLUCOMTR MCNC 65.0 mg/dL Below low normal 09/27/2023 70 - 199 [facility] GLUCOSE BLDC GLUCOMTR MCNC 105.0 mg/dL Normal 09/27/2023 70 - 199 [facility] GLUCOSE BLDC GLUCOMTR MCNC 259.0 mg/dL Above high normal 09/26/2023 70 - 199 [facility] GLUCOSE BLDC GLUCOMTR MCNC 202.0 mg/dL Above high normal 09/26/2023 70 - 199 [facility] ALP SERPL-CCNC 112.0 U/L Above high normal 09/26/2023 34 - 1 04 [facility] BILIRUB DIRECT SERPL MCNC 0.1 mg/dL Normal 09/26/2023 0 - 0.2 [facility] ALBUMIN SERPL BCG MCNC 3.8 g/dL Normal 09/26/2023 3.5 - 5 [facility] ALT SERPL CCNC 31.0 U/L Normal 09/26/2023 7 - 52 [facility] PROT SERPL MCNC 5.5 g/dL Below low normal 09/26/2023 6.4 - 8.5 [facility] AST SERPL CCNC 20.0 U/L Normal 09/26/2023 5 - 40 [facility] ALBUMIN/GLOB SERPL MRTO 2.2 Normal 09/26/2023 [facility] BILIRUB SERPL MCNC 0.5 mg/dL Normal 09/26/2023 0.3 - 1 [facility] PHOSPHATE SERPL MCNC 2.3 mg/dL Below low normal 09/26/2023 2 .5 - 4.5 [facility] MAGNESIUM SERPL MCNC 2.2 mg/dL Normal 09/26/2023 1.7 - 2. 8 [facility] HCO3 SER SCNC 25.0 mmol/L Normal 09/26/2023 24 - 32 [facility] CREAT SERPL MCNC 0.7 mg/dL Normal 09/26/2023 0.7 - 1.3 [facility] BUN SERPL MCNC 16.0 mg/dL Normal 09/26/2023 9 - 20 [facility] CHLORIDE SERPL SCNC 111.0 mmol/L Above high normal 98 - 107 [facility] GLUCOSE SERPL MCNC 197.0 mg/dL Normal 09/26/2023 70 - 199 [facility] ANION GAP SERPL SCNC 12.0 mmol/L Normal 09/26/2023 5 - 14 [facility] SODIUM SERPL SCNC 148.0 mmol/L Above high normal 09/26/2023 135 - 145 [facility] POTASSIUM SERPL SCNC 4.1 mmol/L Normal 09/26/2023 3.5 - 5 .1 [facility] CALCIUM SERPL MCNC 9.0 mg/dL Normal 09/26/2023 8.4 - 10.2 [facility] HCT VFR BLD AUTO 40.6 % Normal 09/26/2023 40 - 54 [facility] RDW RBC AUTO RTO 13.1 % Normal 09/26/2023 12.1 - 17.7 [facility] PLATELET NO. BLD AUTO 210.0 K/uL Normal 09/26/2023 150 - 450 [facility] MCHC RBC AUTO MCNC 33.4 g/dL Normal 09/26/2023 32 - 36 [facility] PMV BLD AUTO 8.1 fL Normal 09/26/2023 7.4 - 11.4 [facility] MCH RBC QN AUTO 30.9 pg Normal 09/26/2023 25 - 33 [facility] WBC NO. BLD AUTO 8.9 K/uL Normal 09/26/2023 4 - 10.5 [facility] HGB BLD MCNC 13.6 g/dL Normal 09/26/2023 13.5 - 18 [facility] RBC NO. BLD AUTO 4.39 M/uL Below low normal 09/26/2023 4.7 - 6 [facility] MCV RBC AUTO 92.5 fL Normal 09/26/2023 78 - 100 [facility] GLUCOSE BLDC GLUCOMTR MCNC 137.0 mg/dL Normal 09/26/2023 70 - 199 [facility] GLUCOSE BLDC GLUCOMTR MCNC 130.0 mg/dL Normal 09/26/2023 70 - 199 [facility] GLUCOSE BLDC GLUCOMTR MCNC 253.0 mg/dL Above high normal 09/26/2023 70 - 199 [facility] GLUCOSE BLDC GLUCOMTR MCNC 282.0 mg/dL Above high normal 09/26/2023 70 - 199 [facility] GLUCOSE BLDC GLUCOMTR MCNC 105.0 mg/dL Normal 09/26/2023 70 - 199 [facility] VALPROATE SERPL-MCNC 44.0 mcg/mL Below low normal 09/26/2023 50 - 100 [facility] GLUCOSE BLDC GLUCOMTR MCNC 177.0 mg/dL Normal 09/25/2023 70 - 199 [facility] GLUCOSE BLDC GLUCOMTR MCNC 60.0 mg/dL Below low normal 09/25/2023 70 - 199 [facility] GLUCOSE BLDC GLUCOMTR MCNC 105.0 mg/dL Normal 09/25/2023 70 - 199 [facility] LORAZEPAM 2287.0 Normal 10/02/2023 [facility] CREATININE 150.0 Normal 10/02/2023 [facility] CREATININE 150.0 Normal 10/01/2023 [facility] COCAINE 370.0 Normal 10/01/2023 [facility] BZE Ur Ql Scn POSITIVE Abnormal 09/25/2023 - [facility] Benzodiaz Ur Ql Scn POSITIVE Abnormal 09/25/2023 - [facility] Opiates Ur Ql Scn NEGATIVE Normal 09/25/2023 - C [facility] Amphet Ur Ql Scn NEGATIVE Normal 09/25/2023 - [facility] Barbiturates Ur Ql Scn NEGATIVE Normal 09/25/2023 - [facility] Cannabinoids Ur Ql Scn NEGATIVE Normal 09/25/2023 - [facility] Oxycodone Ur Ql Scn NEGATIVE Normal 09/25/2023 - [facility] PCP Ur Ql Scn NEGATIVE Normal 09/25/2023 - [facility] GLUCOSE BLDC GLUCOMTR MCNC 176.0 mg/dL Normal 09/25/2023 70 - 199 [facility] GLUCOSE BLDC GLUCOMTR MCNC 192.0 mg/dL Normal 09/25/2023 70 - 199 [facility] GLUCOSE BLDC GLUCOMTR MCNC 234.0 mg/dL Above high normal 09/25/2023 70 - 199 [facility] GLUCOSE BLDC GLUCOMTR MCNC 254.0 mg/dL Above high normal 09/25/2023 70 - 199 [facility] GLUCOSE BLDC GLUCOMTR MCNC 262.0 mg/dL Above high normal 09/25/2023 70 - 199 [facility] LACTATE SERPL SCNC 1.9 mmol/L Normal 09/25/2023 0.5 - 2 [facility] MAGNESIUM SERPL MCNC 1.9 mg/dL Normal 09/25/2023 1.7 - 2. 8 [facility] GLUCOSE SERPL MCNC 251.0 mg/dL Above high normal 09/25/2023 70 - 199 [facility] CHLORIDE SERPL SCNC 107.0 mmol/L Normal 09/25/2023 98 - 1 07 [facility] BUN SERPL MCNC 13.0 mg/dL Normal 09/25/2023 9 - 20 CTT HS[facility]AN ANION GAP SERPL SCNC 14.0 mmol/L Normal 09/25/2023 5 - 14 [facility] POTASSIUM SERPL SCNC 4.6 mmol/L Normal 09/25/2023 3.5 - 5 .1 [facility] CREAT SERPL MCNC 0.6 mg/dL Below low normal 09/25/2023 0.7 - 1.3 [facility] HCO3 SER SCNC 25.0 mmol/L Normal 09/25/2023 24 - 32 CTT HS[facility] CALCIUM SERPL MCNC 8.6 mg/dL Normal 09/25/2023 8.4 - 10.2 [facility] SODIUM SERPL SCNC 146.0 mmol/L Above high normal 09/25/2023 135 - 145 [facility] PHOSPHATE SERPL MCNC 3.7 mg/dL Normal 09/25/2023 2.5 - 4. 5 [facility] WBC NO. BLD AUTO 12.4 K/uL Above high normal 09/25/2023 4 - 10.5 [facility] HGB BLD MCNC 15.0 g/dL Normal 09/25/2023 13.5 - 18 [facility] MCV RBC AUTO 90.8 fL Normal 09/25/2023 78 - 100 [facility] RAN MCHC RBC AUTO MCNC 34.4 g/dL Normal 09/25/2023 32 - 36 [facility] RDW RBC AUTO RTO 12.8 % Normal 09/25/2023 12.1 - 17.7 [facility] HCT VFR BLD AUTO 43.5 % Normal 09/25/2023 40 - 54 [facility] PMV BLD AUTO 7.8 fL Normal 09/25/2023 7.4 - 11.4 [facility] MCH RBC QN AUTO 31.3 pg Normal 09/25/2023 25 - 33 CTT HS[facility]AN PLATELET NO. BLD AUTO 253.0 K/uL Normal 09/25/2023 150 - 450 [facility] RBC NO. BLD AUTO 4.79 M/uL Normal 09/25/2023 4.7 - 6 CT [facility] Hgb A1c MFr Bld HPLC 11.8 % Above high normal 09/25/2023 - 5.7 [facility] GLUCOSE BLDC GLUCOMTR MCNC 252.0 mg/dL Above high normal 09/25/2023 70 - 199 [facility] Encounters Encounter Type Encounter Reason Primary Diagnosis Location Date In[place] Unspecified [place] [facility] [place] Epilepsy, unspecified, not intractable, with status epilepticus [place] 01/26/2022 Care Team Organization Name Specialty [place] Email [place] [facility] [place] [facility] [place] P[place],No Primary Care 01/26/2022 06/01/2024 [place] NO PCP Primary Care 01/26/2022 01/29/2022 [place] [facility] 01/26/2022 01/26/2022
== END 2025-04-28 13:46 | disposition home or self-care (01) ==
LOC: HO.HSM 13:20
PROVIDERS: PCP Pediatrics; Visit Provider Psychiatry & Neurology Neurology
DX: G40.409 Other generalized epilepsy and epileptic syndromes, not intractable, without status epilepticus (principal); Q99.9 Chromosomal abnormality, unspecified; Q87.89 Other specified congenital malformation syndromes, not elsewhere classified; R62.50 Unspecified lack of expected normal physiological development in childhood; F48.9 Nonpsychotic mental disorder, unspecified; R46.89 Other symptoms and signs involving appearance and behavior; G93.49 Other encephalopathy
CPT/HCPCS: 99214

== ENCOUNTER → 2025-04-28 13:19 | Outpatient (BNVA) | payer OTHER, SELFPAY | PROVIDERS: PCP Pediatrics; Visit Provider Psychiatry & Neurology Neurology | DX: G40.409 Other generalized epilepsy and epileptic syndromes, not intractable, without status epilepticus (principal); G93.49 Other encephalopathy; Q99.9 Chromosomal abnormality, unspecified; Q87.89 Other specified congenital malformation syndromes, not elsewhere classified; R62.50 Unspecified lack of expected normal physiological development in childhood; F48.9 Nonpsychotic mental disorder, unspecified; R46.89 Other symptoms and signs involving appearance and behavior | CPT/HCPCS: 99212 ==